=== PATIENT | male | born 1950 | race Caucasian/White ===

== ENCOUNTER 2020-01-11 08:37 | Outpatient (REF) | payer MEDICARE, OTHER, SELFPAY ==
[2020-01-11 10:11] LABS: MANUAL DIFF FLAG NO
[2020-01-11 10:16] LABS: Basophils Percent Auto 0.7 % (0-2); Eosinophils Absolute Auto 0.1 X10*3/uL (0.0-0.4); Eosinophils Percent Auto 1.8 % (0-4); Hematocrit 42.9 % (42-52); Hemoglobin 14.3 g/dl (14.0-18.0); Imm Gran Abs Auto 0.01 X10*3/uL (0.00-0.03); Imm Gran Pct Auto 0.2 % (0.0-0.4); Lymphocytes Absolute Auto 1.2 X10*3/uL (1.2-4.9); Lymphocytes Percent Auto 20.3 % (20-40); Mean Corpuscular HGB Conc 33.3 g/dl (31.0-36.0); Mean Corpuscular Volume 92.9 fL (80-98); Monocytes Absolute Auto 0.4 X10*3/uL (0.1-1.2); Monocytes Percent Auto 6.9 % (2-11); Neutrophils Absolute Auto 4.3 X10*3/uL (2.0-8.3); Neutrophils Percent Auto 70.1 % (45-73); Platelet Count 192 X10*3/uL (160-400); Red Blood Count 4.62 X10*6/uL (4.60-5.80); Red Cell Distribution Width 11.9 % (11.0-16.0); White Blood Count 6.1 X10*3/uL (4.8-10.8)
[2020-01-11 10:50] LABS: Alanine Aminotransferase 20 U/L (0-40); Albumin Level 4.4 g/dL (3.5-5.0); Alkaline Phosphatase 65 U/L (39-117); Anion Gap 12 (12-20); Aspartate Amino Transferase 20 U/L (5-37); Bilirubin Total 0.9 mg/dL (0.0-1.0); Blood Urea Nitrogen 23 mg/dL (9-16); Carbon Dioxide 29 mmol/L (22-29); Chloride 103 mmol/L (96-108); Cholesterol 148 mg/dL; Estimated Glomerular Filt Rate > 60; Glucose Fasting 104 mg/dL (60-99); HDL Cholesterol 47 mg/dL; LDL Cholesterol Calculated 89 mg/dl; Potassium 4.2 mmol/l (3.3-5.1); Sodium 140 mmol/L (135-145); Total Protein 7.1 g/dL (6.5-8.0); Triglycerides 60 mg/dL
[2020-01-11 11:03] LABS: Thyroid Stimulating Hormone 1.04 mIU/mL (0.32-4.0)
== END 2020-01-11 08:38 | disposition home or self-care (01) ==
LOC: HO.10HDL 08:37
PROVIDERS: Visit Provider Internal Medicine
DX: E78.5 Hyperlipidemia, unspecified (principal)
CPT/HCPCS: 36415; 80053; 80061; 84443; 85025

== ENCOUNTER 2020-09-24 14:40 | Outpatient (REF) | payer MEDICARE, OTHER, SELFPAY ==
[2020-09-24 15:01] LABS: MANUAL DIFF FLAG NO
[2020-09-24 15:03] LABS: Basophils Percent Auto 0.3 % (0-2); Eosinophils Percent Auto 0.3 % (0-4); Hematocrit 42.6 % (42-52); Hemoglobin 14.4 g/dl (14.0-18.0); Imm Gran Abs Auto 0.05 X10*3/uL (0.00-0.03); Imm Gran Pct Auto 0.5 % (0.0-0.4); Lymphocytes Absolute Auto 0.8 X10*3/uL (1.2-4.9); Lymphocytes Percent Auto 8.5 % (20-40); Mean Corpuscular HGB Conc 33.8 g/dl (31.0-36.0); Mean Corpuscular Hemoglobin 30.6 pg (27.0-33.0); Mean Corpuscular Volume 90.4 fL (80-98); Mean Platelet Volume 9.5 fL (9.4-12.4); Monocytes Absolute Auto 0.7 X10*3/uL (0.1-1.2); Monocytes Percent Auto 7.3 % (2-11); Neutrophils Absolute Auto 7.9 X10*3/uL (2.0-8.3); Neutrophils Percent Auto 83.1 % (45-73); Platelet Count 282 X10*3/uL (160-400); Red Blood Count 4.71 X10*6/uL (4.60-5.80); White Blood Count 9.5 X10*3/uL (4.8-10.8)
[2020-09-24 15:23] LABS: Anion Gap 15 (12-20); Blood Urea Nitrogen 18 mg/dL (9-16); Calcium 9.8 mg/dL (8.4-10.2); Carbon Dioxide 27 mmol/L (22-29); Chloride 98 mmol/L (96-108); Estimated Glomerular Filt Rate > 60; Glucose Random 104 mg/dL (60-115); Potassium 4.6 mmol/L (3.3-5.1); Sodium 135 mmol/L (135-145)
[2020-09-26 08:10] LABS: Lyme Abs Screen POSITIVE
[2020-10-02 12:37] LABS: 18 KD (IgG) Band NON-REACTIVE; 23 KD (IgG) Band NON-REACTIVE; 23 KD (IgM) Band REACTIVE; 28 KD (IgG) Band NON-REACTIVE; 30 KD (IgG) Band NON-REACTIVE; 39 KD (IgM) Band REACTIVE; 41 KD (IgM) Band REACTIVE; 45 KD (IgG) Band NON-REACTIVE; 58 KD (IgG) Band NON-REACTIVE; 66 KD (IgG) Band NON-REACTIVE; 93 KD (IgG) Band NON-REACTIVE; Lyme IgG Blot Interp NEGATIVE (NEGATIVE); Lyme IgM Blot Interp POSITIVE (NEGATIVE)
== END 2020-09-24 14:41 | disposition home or self-care (01) ==
LOC: HO.LAB 14:40
PROVIDERS: PCP Internal Medicine; Visit Provider Internal Medicine
DX: Z00.00 Encounter for general adult medical examination without abnormal findings (principal); L03.90 Cellulitis, unspecified; R51.9 Headache, unspecified
CPT/HCPCS: 36415; 80048; 85025; 86617; 86618

== ENCOUNTER 2020-12-02 08:02 | Outpatient (REF) | payer MEDICARE, OTHER, SELFPAY ==
[2020-12-02 10:39] LABS: Alanine Aminotransferase 21 U/L (0-40); Albumin Level 4.5 g/dL (3.5-5.0); Alkaline Phosphatase 64 U/L (39-117); Anion Gap 12 (12-20); Aspartate Amino Transferase 24 U/L (5-37); Bilirubin Total 0.8 mg/dL (0.0-1.0); Blood Urea Nitrogen 15 mg/dL (9-16); Calcium 9.7 mg/dL (8.4-10.2); Carbon Dioxide 29 mmol/L (22-29); Chloride 102 mmol/L (96-108); Estimated Glomerular Filt Rate > 60; Glucose Fasting 106 mg/dL (60-99); Potassium 4.5 mmol/L (3.3-5.1); Sodium 138 mmol/L (135-145); Total Protein 7.5 g/dL (6.5-8.0)
[2020-12-02 11:03] LABS: Prostate Specific Antigen 0.99 ng/mL (<0.05-4.0)
== END 2020-12-02 08:03 | disposition home or self-care (01) ==
LOC: HO.10HDL 08:02
PROVIDERS: Visit Provider Nurse Practitioner Family
DX: Z12.5 Encounter for screening for malignant neoplasm of prostate (principal); Z13.1 Encounter for screening for diabetes mellitus
CPT/HCPCS: 36415; 80053; 84153

== ENCOUNTER 2021-03-23 08:25 | Outpatient (REF) | payer MEDICARE, SELFPAY ==
[2021-03-23 10:49] LABS: Cholesterol 185 mg/dL; HDL Cholesterol 49 mg/dL; LDL Cholesterol Calculated 118 mg/dl; Triglycerides 93 mg/dL
== END 2021-03-23 08:26 | disposition home or self-care (01) ==
LOC: HO.10HDL 08:25
PROVIDERS: Visit Provider Internal Medicine
DX: E11.9 Type 2 diabetes mellitus without complications (principal)
CPT/HCPCS: 36415; 80061

== ENCOUNTER 2021-07-20 08:06 | Outpatient (REF) | payer MEDICARE, SELFPAY ==
[2021-07-20 10:45] LABS: Cholesterol 173 mg/dL; HDL Cholesterol 50 mg/dL; LDL Cholesterol Calculated 105 mg/dl; Triglycerides 92 mg/dL
== END 2021-07-20 08:07 | disposition home or self-care (01) ==
LOC: HO.10HDL 08:06
PROVIDERS: Visit Provider Internal Medicine
DX: Z00.00 Encounter for general adult medical examination without abnormal findings (principal)
CPT/HCPCS: 36415; 80061

== ENCOUNTER 2022-01-22 08:15 | Day surgery (SDC) | payer MEDICARE, SELFPAY ==
--- NOTE | 2022-01-21 10:59 | HO.ANESPROP2 ---
Documented by User: Nanette Le NP 01/21/22 11:00 HPI - Anesthesia Eval Consult details Narrative: 71yo M for Colonoscopy PMFSH Active Problems Active Problems: All Active Problems (Updated 01/15/21 @ 15:09 by Renan Kingsley MD) Groin pain (Acute) Lyme disease (Acute) Cellulitis (Acute) Adult general medical exam (Acute) Screening for prostate cancer (Acute) Screening for colon cancer (Acute) Screening for diabetes mellitus (Acute) Acid reflux (Acute) Hyperlipidemia (Acute) Depression (Acute) Past Medical History Medical History Asbestosis Depression Hyperlipidemia Lyme disease Screening for colon cancer Screening for diabetes mellitus Screening for prostate cancer Family History Family History Father Dementia Mother Aneurysm Surgical History Surgical History H/O rectal polypectomy History of colonoscopy History of inguinal hernia repair History of umbilical hernia repair History of vasectomy Social History Social History Housing: House Alcohol intake: current Alcohol intake frequency: a few times a month Patient Tobacco Use Status: Former Tobacco user Tobacco use type: Cigarette e-Cigarette/Vaping Use: Never Used Second Hand Smoke Exposure: No Advance Directives: No Advance Directives Information Provided: Yes service: No Current occupational status: retired Cognitive needs: No Hearing needs: No Vision needs: No Meds Allergies Allergy/AdvReac Type Severity Reaction Status Date / Time No Known Allergies Allergy Verified 09/23/21 15:06 Home Medications Medication Instructions Recorded Confirmed Last Taken Type omeprazole 20 mg capsule,delayed 20 mg PO DAILY 01/21/20 09/23/21 Unknown History release Exam Exam Date and Time: January 21, [id number] Assessment and Plan Assessment Anesthesia Assessment: Chart Reviewed Documented by User: Fabian Ho MD 01/22/22 08:54 [facility] Past Medical History Medical History Asbestosis Depression Hyperlipidemia Lyme disease Screening for colon cancer Screening for diabetes mellitus Screening for prostate cancer Family History Family History Father Dementia Mother Aneurysm Family history of problems with anesthesia: No Surgical History Surgical History H/O rectal polypectomy History of colonoscopy History of inguinal hernia repair History of umbilical hernia repair History of vasectomy History of Problems with Anesthesia: No Social History Social History Housing: House Alcohol intake: current Alcohol intake frequency: a few times a month Patient Tobacco Use Status: Former Tobacco user Tobacco use type: Cigarette e-Cigarette/Vaping Use: Never Used Second Hand Smoke Exposure: No Advance Directives: No Advance Directives Information Provided: Yes service: No Current occupational status: retired Cognitive needs: No Hearing needs: No Vision needs: No Meds Allergies Allergy/AdvReac Type Severity Reaction Status Date / Time No Known Allergies Allergy Verified 09/23/21 15:06 Home Medications Medication Instructions Recorded Confirmed Last Taken Type omeprazole 20 mg capsule,delayed 20 mg PO DAILY 01/21/20 09/23/21 Unknown History release Exam Airway Mallampati Class: II TM Dist: >3cm Neck ROM: Full Loose/Missing/Broken Teeth: Yes (no loose but many chipped globally) Heart: rrr+[id number] Lungs: cta b/l Assessment and Plan Assessment Anesthesia Assessment: Anesthesia Plan Discussed Final Anesthetic Review Family History of Problems with Anesthesia: No History of Problems with Anesthesia: No NPO: Yes ASA Class: II Final Preanesthetic Review: No Changes in Pt Med Stat, Meds/Allgs Chart Reviewed, Consent Obtained/Reviewed and Anes Risks/Benef Reviewed Patient Risk: Intermediate Procedure Risk: Intermediate Assessment/Block/Sedation in SS: Assess/Block/Sedation-SS Anesthetic Plan Anesthetic Plan: MAC: and Agree w/ Assess. and Plan Disposition: Standard PACU
[2022-01-22 08:33] VITALS: BMI 26.6
[2022-01-22 08:49] VITALS: BP 160/84; PULSE 93; RESP 16; TEMP 36.8; O2SAT 98
[2022-01-22] MEDS: Lactated Ringers 1,000 ML 100 ML IVCONT (09:04)
--- NOTE | 2022-01-22 10:27 | PM.OP ---
Brief Operative Note Date of Service: 01/22/22 Pre-op diagnosis: Screening Post-op diagnosis: other (Diverticulosis) Procedure: Colonoscopy to the cecum and TI Surgeon: Isai Bonilla Anesthesia: MAC Was an Ferryboat Operator Helper used for this Procedure?: No Estimated blood loss (mL): 0 Pathology: none sent Condition: stable Disposition: PACU
[2022-01-22 10:28] VITALS: BP 126/62; PULSE 58; RESP 16; TEMP 36.4; O2SAT 98
[2022-01-22 10:42] VITALS: BP 113/60; PULSE 60; RESP 18; O2SAT 98
[2022-01-22 10:56] VITALS: BP 131/71; PULSE 66; RESP 18; TEMP 36.7; O2SAT 98
--- NOTE | 2022-01-22 13:01 | OP_ITS ---
SURGEON: Isai Bonilla MD INDICATIONS: The patient presents for evaluation of colorectal cancer screening and personal history of tubular adenoma of the colon. Full consent has been obtained from him for this, including risks of bleeding and perforation. PREOPERATIVE DIAGNOSIS: Colorectal cancer screening and personal history of tubular adenoma of the colon. POSTOPERATIVE DIAGNOSIS: PROCEDURE PERFORMED: Colonoscopy to the cecum and terminal ileum. ESTIMATED BLOOD LOSS: COMPLICATIONS: ANESTHESIA: Monitored anesthesia care. ASSISTANTS: SPECIMENS: POSTOPERATIVE DIAGNOSES: Colorectal cancer screening and personal history of tubular adenoma of the colon, diverticulosis, internal hemorrhoids. DESCRIPTION OF PROCEDURE: The patient was placed in the left lateral decubitus position. The digital rectal exam revealed no abnormalities. The Olympus video pediatric colonoscope was entered into the rectum and advanced easily to the cecum. Once in the cecum, I did identify a normal-appearing cecal pouch with appendiceal orifice and a normal-appearing ileocecal valve. The terminal ileum was cannulated and appeared normal. The scope was withdrawn back in the colon. The entire cecum and ileocecal valve appeared normal. The scope was slowly withdrawn assessing all mucosal surfaces carefully. Preparation was excellent. I did not visualize any sign of polyps, colitis, nor angiodysplasia. There was a moderate amount of sigmoid diverticulosis. In the rectum, scope was retroflexed visualizing internal hemorrhoids, but no other pathology. The rectal mucosa appeared normal. The scope was straightened and withdrawn from the patient. He tolerated the procedure well and was returned to the recovery area in stable condition. IMPRESSION: 1. Diverticulosis. 2. Internal hemorrhoids. PLAN: Given his previous history, I would recommend a followup colonoscopy in 5 years for further screening. He will otherwise see me on a p.r.n. basis. MD MENDEZ Bishop/JAIDA / [id number]
== END 2022-01-22 11:26 | disposition home or self-care (01) ==
PROVIDERS: PCP Internal Medicine; Visit Provider Internal Medicine
PROC: 0DJD8ZZ Inspection of Lower Intestinal Tract, Via Natural or Artificial Opening Endoscopic (ICD-10-PCS; CPT 45378; principal; 2022-01-22 09:30)
DX: Z12.11 Encounter for screening for malignant neoplasm of colon (principal); Z86.010 Personal history of colon polyps; K57.30 Diverticulosis of large intestine without perforation or abscess without bleeding; K64.8 Other hemorrhoids; K22.2 Esophageal obstruction; E78.5 Hyperlipidemia, unspecified; J61 Pneumoconiosis due to asbestos and other mineral fibers; A69.20 Lyme disease, unspecified; Z79.899 Other long term (current) drug therapy; Z87.891 Personal history of nicotine dependence
CPT/HCPCS: G0105; J2370

== ENCOUNTER 2022-01-26 08:04 | Outpatient (REF) | payer MEDICARE, SELFPAY ==
[2022-01-26 10:37] LABS: MANUAL DIFF FLAG NO
[2022-01-26 10:45] LABS: Basophils Percent Auto 0.8 % (0-2); Eosinophils Absolute Auto 0.1 X10*3/uL (0.0-0.4); Eosinophils Percent Auto 2.8 % (0-4); Hematocrit 43.7 % (42.0-52.0); Hemoglobin 14.7 g/dl (14.0-18.0); Imm Gran Abs Auto 0.01 X10*3/uL (0.00-0.03); Imm Gran Pct Auto 0.2 % (0.0-0.4); Lymphocytes Absolute Auto 1.4 X10*3/uL (1.2-4.9); Lymphocytes Percent Auto 26.8 % (20-40); Mean Corpuscular HGB Conc 33.6 g/dl (31.0-36.0); Mean Corpuscular Hemoglobin 30.5 pg (27.0-33.0); Mean Corpuscular Volume 90.7 fL (80.0-98.0); Mean Platelet Volume 10.5 fL (9.4-12.4); Monocytes Absolute Auto 0.4 X10*3/uL (0.1-1.2); Monocytes Percent Auto 8.5 % (2-11); Neutrophils Absolute Auto 3.1 x10*3/uL (2.0-8.3); Neutrophils Percent Auto 60.9 % (45-73); Platelet Count 176 X10*3/uL (160-400); Red Blood Count 4.82 X10*6/uL (4.60-5.80); White Blood Count 5.1 X10*3/uL (4.8-10.8)
[2022-01-26 11:17] LABS: Alanine Aminotransferase 24 U/L (0-40); Albumin Level 4.6 g/dL (3.5-5.0); Alkaline Phosphatase 68 U/L (39-117); Anion Gap 14 (12-20); Aspartate Amino Transferase 24 U/L (5-37); Bilirubin Total 0.7 mg/dL (0.0-1.0); Blood Urea Nitrogen 26 mg/dL (9-16); Calcium 9.6 mg/dL (8.4-10.2); Carbon Dioxide 28 mmol/L (22-29); Chloride 101 mmol/L (96-108); Cholesterol 182 mg/dL; Estimated Glomerular Filt Rate > 60; Glucose Fasting 106 mg/dL (60-99); HDL Cholesterol 56 mg/dL; LDL Cholesterol Calculated 103 mg/dl; Potassium 4.3 mmol/L (3.3-5.1); Sodium 139 mmol/L (135-145); Total Protein 7.7 g/dL (6.5-8.0); Triglycerides 119 mg/dL
[2022-01-26 11:38] LABS: Prostate Specific Antigen Scr 0.76 ng/mL (<0.05-4.0)
== END 2022-01-26 08:05 | disposition home or self-care (01) ==
LOC: HO.10HDL 08:04
PROVIDERS: Visit Provider Internal Medicine
DX: Z00.00 Encounter for general adult medical examination without abnormal findings (principal); Z13.0 Encounter for screening for diseases of the blood and blood-forming organs and certain disorders involving the immune mechanism; Z12.5 Encounter for screening for malignant neoplasm of prostate
CPT/HCPCS: 36415; 80053; 80061; 84153; 85025

== ENCOUNTER 2022-07-26 08:16 | Outpatient (REF) | payer MEDICARE, SELFPAY ==
[2022-07-26 11:00] LABS: Cholesterol 174 mg/dL; HDL Cholesterol 53 mg/dL; LDL Cholesterol Calculated 105 mg/dl; Triglycerides 83 mg/dL
== END 2022-07-26 08:17 | disposition home or self-care (01) ==
LOC: HO.10HDL 08:16
PROVIDERS: Visit Provider Internal Medicine
DX: E78.5 Hyperlipidemia, unspecified (principal)
CPT/HCPCS: 36415; 80061

== ENCOUNTER 2022-08-05 09:08 | Outpatient (REF) | payer MEDICARE, SELFPAY ==
[2022-08-05 11:30] LABS: Erythrocyte Sedimentation Rate 7 MM/HR (0-15)
[2022-08-05 11:44] LABS: Folate 11.3 ng/mL (> or = 4.0); Vitamin B12 274 pg/mL (200-900)
== END 2022-08-05 09:09 | disposition home or self-care (01) ==
LOC: HO.10HDL 09:08
PROVIDERS: Visit Provider Internal Medicine
DX: R41.89 Other symptoms and signs involving cognitive functions and awareness (principal)
CPT/HCPCS: 36415; 82607; 82746; 85652

== ENCOUNTER 2022-08-26 10:23 | Outpatient (REF) | payer MEDICARE, SELFPAY ==
--- NOTE | ~2022-08-26 | CT_ITS ---
EXAMINATION: CT HEAD WITHOUT CONTRAST CLINICAL INFORMATION: Cognitive decline. COMPARISON: None. TECHNIQUE: Contiguous axial imaging was performed from the skullbase to vertex without intravenous administration of contrast. This CT examination was performed using dose optimization techniques as appropriate, variously including the following: *Automated exposure control *Adjustment of mA and/or kV according to patient size (this includes techniques or standardized protocols for targeted exams where dose is matched to indication/reason for exam; i.e. extremities or head) *Use of iterative reconstruction technique DLP: 797 mGy-cm. FINDINGS: There is no evidence of acute intracranial hemorrhage or territorial infarction. No abnormal mass effect or midline shift is seen. [place] to white matter differentiation is well preserved. No extra-axial fluid collections are identified. Incidental 9 mm pineal cyst noted. No findings of hydrocephalus. There is no abnormal attenuation within the brain. Mild generalized parenchymal volume loss evident. The osseous structures and soft tissues are normal. The mastoid air cells and visualized portions of the paranasal sinuses are well aerated. Soft tissue in the deep portion of the left external auditory canal may reflect cerumen. CT/CT head/brain wo IV con IMPRESSION: No acute intracranial pathology.
== END 2022-08-26 10:24 | disposition home or self-care (01) ==
LOC: HO.CT 10:23
PROVIDERS: Visit Provider Internal Medicine
DX: R41.89 Other symptoms and signs involving cognitive functions and awareness (principal)
CPT/HCPCS: 70450

== ENCOUNTER 2022-09-17 06:20 | Outpatient (REF) | payer MEDICARE, SELFPAY ==
[2022-09-21 14:43] LABS: Vitamin B1 12 nmol/L (8-30)
== END 2022-09-17 06:21 | disposition home or self-care (01) ==
LOC: HO.LAB 06:20
PROVIDERS: PCP Internal Medicine; Visit Provider Psychiatry & Neurology Neurology
DX: G31.84 Mild cognitive impairment of uncertain or unknown etiology (principal)
CPT/HCPCS: 36415; 80048; 82607; 82746; 84425; 84443

== ENCOUNTER 2022-09-29 10:49 | Outpatient (AMB) | payer MEDICARE, SELFPAY ==
[2022-09-29 10:56] VITALS: BP 150/90; BMI 27.4
--- NOTE | 2022-09-29 10:56 | A.OFFVIS_ITS ---
Intake Vital Signs 09/29/22 10:56 09/29/22 11:18 Height 5 ft 7 in Weight 175 lb BMI 27.4 BP 150/90 H 144/80 H Blood Pressure Location Lt brachial Lt brachial Position Sitting Sitting Intake Visit Reasons: [facility] Intake Note: Patient here fo a subsequent annual wellness visit Dairy Helper Required: No Accompanied by: Self / Same As Patient Allergies No Known Allergies Allergy (Verified 09/29/22 11:11) Medication List - Last Reconciled 09/29/22 by CLARICE Renee atorvastatin 20 mg PO DAILY donepezil 10 mg PO DAILY lorazepam 1 mg PO BID-TID PRN 30 days omeprazole 20 mg PO DAILY HPI SAWV HPI Details Patient is a 72-year-old male who presents today for subsequent [facility] ess visit. Patient of Dr. Kingsley. Patient is up-to-date with his health preventative screenings and immunizations. [place] of care was reviewed with the patient and he was provided with a screening schedule. Patient was provided with a healthcare proxy form and he has declined a MOLST form. [facility] Medical History Asbestosis Depression Hyperlipidemia Lyme disease Screening for colon cancer Screening for diabetes mellitus Screening for prostate cancer Surgical History (Updated 09/29/22 @ 11:27 by CLARICE Renee) H/O rectal polypectomy History of colonoscopy History of inguinal hernia repair History of umbilical hernia repair History of vasectomy Family History Father Dementia Mother Aneurysm Social History Housing: House Alcohol intake: current Alcohol intake frequency: 0-2 drinks per day Patient Tobacco Use Status: Former Tobacco user Tobacco use type: Cigarette Cigarette Packs Per Day: 1 Cigarettes Per Day: 20.0 Years Smoked: 25 e-Cigarette/Vaping Use: Never Used Second Hand Smoke Exposure: No service: No Current occupational status: retired Cognitive needs: No Hearing needs: No Vision needs: No Questionnaire Medicare Wellness Checkup [age] What gender do you identify with?: male During the past 4 weeks, how much have you been bothered by emotional problems such as feeling anxious, depressed, irritable, sad or downhearted, and blue?: moderately During the past 4 weeks, has your physical & emotional health limited your social activities with family, friends, neighbors, or groups?: moderately During the past 4 weeks, how much bodily pain have you generally had?: no pain During the past 4 weeks, was someone available to help you if you needed & wanted help?: yes, quite a bit During the past 4 weeks, what was the hardest physical activity you could do for at least 2 minutes?: moderate Can you get to places out of walking distance without help? (For eg., can you travel alone on buses, taxis or drive your car?): Yes Can you go shopping for groceries or clothes without someone's help?: Yes Can you prepare your own meals?: Yes Can you do your housework without help?: Yes Because of any health problems, do you need the help of another person with your personal care needs such as eating, bathing, dressing or getting around the house?: No Can you handle your own money without help?: Yes During the past 4 weeks, how would you rate your health in general?: good During the past 4 weeks how have things been going for you?: good & bad parts about equal Are you having difficulties driving your car?: no Do you always fasten your seat belt when you are in a car?: yes, usually During past 4 weeks, have you been bothered by the following: never: Falling or dizzy when standing up, Sexual problems?, Trouble eating well?, Teeth or denture problems?, Problems using the telephone? and Tiredness or fatigue? Have you fallen 2 or more times in the past year?: No Are you afraid of falling?: No Are you a smoker?: no During the past 4 weeks, how many drinks of wine, beer, or other alcoholic beverages did you have?: 10 or more per week Do you exercise for about 20 minutes 3 or more times a week?: yes, most of the time Have you been given information to help with the following?: no: Hazards in your house that might hurt you? and no: Keeping track of your medications? How often do you have trouble taking medicines the way you have been told to take them?: I always take medicine as prescribed How confident are you that you can control & manage most of your health problems?: somewhat confident What is your race?: White Mini Mental State Exam (MMSE) Orientation What is the (year) (season) (date) (day) (month)?: year, season, date, day and month Score Score: 5 Activity of Daily Living Bathing - sponge bath, tub bath or shower: receives no assistance (gets in/out by self, if usual bathing means Dressing - getting clothes from closets & drawers, including inner/outer garments & fasteners.: gets clothes & gets completely dressed without help Toileting - going to the 'toilet room' for urine/bowel elimination & cleaning self/arranging clothes: goes to toilet room, cleans self, arranges clothes without help Transfer: moves in & out of bed and chair without help (may use support object) Continence: controls urination/bowel movements completely by self Feeding: feeds self without help Total Score: 0 Information obtained from: patient Using telephone: independent Traveling: independent Shopping: independent Preparing meals: independent Housework: independent Taking medicine: independent Managing money: independent PHQ-9 Over the last 2 weeks, how often have you been bothered by any of the following problems? 1. Little interest or pleasure in doing things: not at all 2. Feeling down, depressed, or hopeless: several days 3. Trouble falling or staying asleep, or sleeping too much: not at all 4. Feeling tired or having little energy: not at all 5. Poor appetite or overeating: not at all 6. Feeling bad about yourself - or that you are a failure or have let yourself or your family down: not at all 7. Trouble concentrating on things, such as reading the newspaper or watching television: not at all 8. Moving or speaking so slowly that other people could have noticed. Or the opposite - being so fidgety or restless that you have been moving around a lot more than usual: not at all 9. Thoughts that you would be better off or of hurting yourself in some way: not at all Total score: 1 Depression Screening Interpretation: Negative 59953 - PHQ-9 Billing: Yes Source: Developed by Drs. Isai Barros, Kristin Blanton, Saulo Shultz and colleagues, with an educational mine from [employer]. AUDIT C Alcohol Use Questionnaire (AUDIT-C) 1. How often do you have a drink containing alcohol?: 4 or more times a week 2. How many drinks containing alcohol do you have on a typical day when you are drinking?: 1 or 2 3. How often do you have six or more drinks on one occasion?: Never Total Score: 4 Score Reviewed/Action Taken: No Fall Risk Assessment Fall Risk Assessment Fall risk assessment: No Falls in past year SOL-7 AMB Questionnaire SOL-7 Date SOL - 7 assessed: 09/29/22 Feeling nervous, anxious, or on edge: 0 = Not at all Not being able to stop or control worryin = Not at all Worrying too much about different things: 0 = Not at all Trouble relaxin = Not at all Being so restless that it is hard to sit still: 0 = Not at all Becoming easily annoyed or irritable: 0 = Not at all Feeling afraid as if something awful might happen: 0 = Not at all Total SOL-7 score (0-4 normal; 5-9 mild; 10-14 moderate; 15-21 severe): 0 Source: Developed by Drs. Isai Barros, Kristin Blanton, Saulo Shultz and colleagues, with an educational mine from [email or web address]. SOL-7 Assessment Billing SOL-7 Assessment Tool: SOL-7 Assessment 21167 Physical Exam Vital Signs: Last Vital Signs BP 150/90 H 09/29/22 10:56 BMI result Body Mass Index 27.4 Const General: cooperative and no acute distress Orientation/consciousness: patient oriented x3 HEENT Other: Whisper test: pass Neuro Other: Balance: Normal Get up and walk: able to Romberg: negative Tandem gait: able to General: patient oriented x3 Assessment & Plan Assessment & Plan (1) Adult general medical exam: Code(s): Z00.00 - Encounter for general adult medical examination without abnormal findings (2) Acid reflux: Code(s): K21.9 - Gastro-esophageal reflux disease without esophagitis Plan: Omeprazole 20 mg daily Avoid GERD trigger foods Do not lay down 2-3 hours after evening meal (3) Hyperlipidemia: Code(s): E78.5 - Hyperlipidemia, unspecified Qualifiers: Hyperlipidemia type: unspecified Qualified Code(s): E78.5 - Hyperlipidemia, unspecified Plan: Atorvastatin 20 mg daily Low-cholesterol diet (4) Cognitive decline: Code(s): R41.89 - Other symptoms and signs involving cognitive functions and awareness Plan: Patient is on donepezil which is prescribed by Neurology Dr. Evans Quality Reporting (2019) Fall Risk Screening ([facility] 139) Fall risk assessment: No Falls in past year Depression/Bipolar (159/160/161/177) PHQ-9: Total score: 1 Coding Level of Care Code Medicare Subsequent (G0439) Diagnoses Adult general medical exam Z00.00 Acid reflux K21.9 Hyperlipidemia E78.5 Hyperlipidemia type: unspecified Cognitive decline R41.89 CPT Codes Advance Care Planning - Time spent: 1-15 minutes, not on file ([id number]) Additional Codes SOL-7 Assessment Billing - SOL-7 Assessment Tool: SOL-7 Assessment 54670 ([id number]) Advance Care Planning Date of discussion: 09/29/22 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
[2022-09-29 11:18] VITALS: BP 144/80
== END 2022-09-29 11:21 | disposition home or self-care (01) ==
PROVIDERS: PCP Internal Medicine; Visit Provider Nurse Practitioner Family
DX: Z00.00 Encounter for general adult medical examination without abnormal findings (principal); K21.9 Gastro-esophageal reflux disease without esophagitis; E78.5 Hyperlipidemia, unspecified; R41.89 Other symptoms and signs involving cognitive functions and awareness
CPT/HCPCS: 1124F; G0439

== ENCOUNTER 2023-01-26 07:35 | Outpatient (REF) | payer MEDICARE, SELFPAY ==
[2023-01-26 10:29] LABS: MANUAL DIFF FLAG NO
[2023-01-26 10:38] LABS: Basophils Percent Auto 0.5 % (0-2); Eosinophils Absolute Auto 0.1 X10*3/uL (0.0-0.4); Eosinophils Percent Auto 2.3 % (0-4); Hematocrit 44.7 % (42.0-52.0); Imm Gran Abs Auto 0.02 X10*3/uL (0.00-0.03); Imm Gran Pct Auto 0.4 % (0.0-0.4); Lymphocytes Absolute Auto 1.4 X10*3/uL (1.2-4.9); Lymphocytes Percent Auto 25.4 % (20-40); Mean Corpuscular HGB Conc 33.6 g/dl (31.0-36.0); Mean Corpuscular Hemoglobin 31.3 pg (27.0-33.0); Mean Corpuscular Volume 93.1 fL (80.0-98.0); Mean Platelet Volume 11.4 fL (9.4-12.4); Monocytes Absolute Auto 0.5 X10*3/uL (0.1-1.2); Neutrophils Absolute Auto 3.6 x10*3/uL (2.0-8.3); Neutrophils Percent Auto 63.4 % (45-73); Platelet Count 179 X10*3/uL (160-400); Red Cell Distribution Width 12.4 % (11.0-16.0); White Blood Count 5.6 X10*3/uL (4.8-10.8)
[2023-01-26 10:50] LABS: Alanine Aminotransferase 23 U/L (0-40); Albumin Level 4.5 g/dL (3.5-5.0); Alkaline Phosphatase 69 U/L (39-117); Anion Gap 12 (12-20); Aspartate Amino Transferase 27 U/L (5-37); Bilirubin Total 0.7 mg/dL (0.0-1.0); Blood Urea Nitrogen 17 mg/dL (9-16); Calcium 9.6 mg/dL (8.4-10.2); Carbon Dioxide 30 mmol/L (22-29); Chloride 104 mmol/L (96-108); Cholesterol 165 mg/dL (<200); Estimated Glomerular Filt Rate > 60; Glucose Fasting 106 mg/dL (60-99); HDL Cholesterol 55 mg/dL (>40); LDL Cholesterol Calculated 96 mg/dL (<100); Potassium 3.7 mmol/L (3.3-5.1); Sodium 142 mmol/L (135-145); Total Protein 7.7 g/dL (6.5-8.0); Triglycerides 74 mg/dL (<150)
== END 2023-01-26 07:36 | disposition home or self-care (01) ==
LOC: HO.10HDL 07:35
PROVIDERS: Visit Provider Internal Medicine
DX: Z00.00 Encounter for general adult medical examination without abnormal findings (principal); E78.5 Hyperlipidemia, unspecified; N28.9 Disorder of kidney and ureter, unspecified; D64.9 Anemia, unspecified; Z12.5 Encounter for screening for malignant neoplasm of prostate
CPT/HCPCS: 36415; 80053; 80061; 84153; 85025

== ENCOUNTER 2023-02-07 13:17 | Outpatient (AMB) | payer MEDICARE, SELFPAY ==
[2023-02-07 13:19] VITALS: BP 124/72; PULSE 94; O2SAT 98
--- NOTE | 2023-02-07 13:19 | MHC.PC.OV ---
Vital Signs 02/07/23 13:19 Height 5 ft 7 in BP 124/72 Blood Pressure Location Lt brachial Position Sitting Pulse 94 Pulse Source Pulse Oximeter Pulse Oximetry (%) 98 Oxygen Delivery Method Room Air Intake Visit Reasons: 6mth f/u Instructional Technology Facilitator Required: No Custom Stock Maker: Not Required per policy Accompanied by: Self / Same As Patient Allergies No Known Allergies Allergy (Verified 02/07/23 13:20) Medication List - Last Reconciled 02/07/23 by Renan Kingsley MD atorvastatin 20 mg PO DAILY donepezil 10 mg PO DAILY omeprazole 20 mg PO DAILY Tobacco use date assessed: 08/04/22 Fall risk assessment: No Falls in past year Last assessed Fall Risk: 02/07/23 Dental Screening Dental Screen Date: 02/07/23 Did you have a dental visit in the last 12 months?: Yes Did you have a dental problem in the last 6 months where you did not have access to dental care?: No Was dental information given to patient?: Patient has dentist HPI 6mth f/u HPI Details hyperlipidemia on rx; doing well and lbs fine PFSH Medical History Asbestosis Lyme disease Screening for prostate cancer Screening for colon cancer Screening for diabetes mellitus Hyperlipidemia Depression Surgical History History of colonoscopy History of umbilical hernia repair History of inguinal hernia repair H/O rectal polypectomy History of vasectomy Family History Father Dementia Mother Aneurysm Housing: House Alcohol intake: current Alcohol intake frequency: 0-2 drinks per day Patient Tobacco Use Status: Former Tobacco user Tobacco use type: Cigarette Cigarette Packs Per Day: 1 Cigarettes Per Day: 20.0 Years Smoked: 25 Packs Per Year: 25 Packs per year/per ci.00 e-Cigarette/Vaping Use: Never Used Second Hand Smoke Exposure: No service: No Current occupational status: retired Cognitive needs: No Hearing needs: No Vision needs: No Questionnaire Thrive Questionnaire Date Thrive assessed: 08/04/22 SOL-7 AMB Questionnaire SOL-7 Date SOL - 7 assessed: 09/29/22 Source: Developed by Drs. Isai Barros, Kristin Blanton, Saulo Shultz and colleagues, with an educational mine from [email or web address]. Review of Systems Const Denies chills, Denies headache(s) and Denies weight loss ENT Denies headache(s) Card Denies chest pain, Denies syncope, Denies irregular heart rhythm and Denies dyspnea Resp Denies chest congestion, Denies cough and Denies dyspnea GI Denies abdominal pain, Denies change in stool character, Denies nausea and Denies vomiting Musc Denies deformity and Denies joint swelling Neuro Denies syncope and Denies headache(s) Physical exam (Primary Care) Vital Signs: Last Vital Signs Pulse 94 02/07/23 13:19 BP 124/72 02/07/23 13:19 Pulse Ox 98 02/07/23 13:19 Oxygen Delivery Method Room Air 02/07/23 13:19 Tobacco/Smoking Status: Tobacco use Status Tobacco use date assessed 08/04/22 02/07/23 13:20 Patient Tobacco Use Status Former Tobacco user 02/07/23 13:20 Tobacco use type Cigarette 02/07/23 13:20 e-Cigarette/Vaping Use Never Used 02/07/23 13:20 Thrive Assessment: Date of Thrive Assessment Date Thrive assessed 08/04/22 02/07/23 13:20 Const General: cooperative, comfortable, no acute distress and alert Neck Neck: Yes no lymphadenopathy Thyroid: Thyroid normal Resp Effort & Inspection: normal respiratory effort Auscultation: clear to auscultation bilaterally Percussion: percussion normal Cardio Jugular venous distension: no JVD Palpation: normal PMI Rate: regular rate Rhythm: regular rhythm Heart sounds: S1 normal heart sound present and S2 normal heart sound present GI Inspection: Yes normal to inspection Palpation (GI): No hepatosplenomegaly present Skin General skin exam: no rashes or lesions noted Extrem General: Yes no clubbing, cyanosis or edema Assessment and Plan Assessment & Plan (1) Hyperlipidemia: Code(s): E78.5 - Hyperlipidemia, unspecified Qualifiers: Hyperlipidemia type: unspecified Qualified Code(s): E78.5 - Hyperlipidemia, unspecified Plan: stable; same rx Orders: Orders Lipid Panel Today E78.5 - Hyperlipidemia, unspecified Coding Level of Care Code Est Pt Level 3 (84733) Diagnoses Hyperlipidemia, unspecified hyperlipidemia type E78.5 Hyperlipidemia type: unspecified
== END 2023-02-07 13:32 | disposition home or self-care (01) ==
PROVIDERS: Visit Provider Internal Medicine
DX: E78.5 Hyperlipidemia, unspecified (principal)
CPT/HCPCS: 99213

== ENCOUNTER 2023-07-13 07:37 | Outpatient (REF) | payer MEDICARE, SELFPAY ==
[2023-07-13 11:42] LABS: Cholesterol 178 mg/dL (<200); HDL Cholesterol 53 mg/dL (>40); LDL Cholesterol Calculated 109 mg/dL (<100); Triglycerides 84 mg/dL (<150)
== END 2023-07-13 07:38 | disposition home or self-care (01) ==
LOC: HO.10HDL 07:37
PROVIDERS: Visit Provider Internal Medicine
DX: E78.5 Hyperlipidemia, unspecified (principal)
CPT/HCPCS: 36415; 80061

== ENCOUNTER 2023-08-04 10:06 | Outpatient (AMB) | payer MEDICARE, SELFPAY ==
[2023-08-04 10:08] VITALS: BP 142/64; PULSE 80; O2SAT 99; BMI 26.6
--- NOTE | 2023-08-04 10:08 | A.OFFPC_ITS ---
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: Not Required per policy Accompanied by: Self / Same As Patient Allergies No Known Allergies Allergy (Verified 08/04/23 10:08) Medication List - Last Reconciled 08/04/23 by Renan Kingsley MD atorvastatin 20 mg PO DAILY donepezil 10 mg PO DAILY lorazepam 1 mg PO DAILY PRN omeprazole 20 mg PO DAILY Tobacco use date assessed: 08/04/23 Fall risk assessment: No Falls in past year Last assessed Fall Risk: 08/04/23 Dental Screening Dental Screen Date: 08/04/23 Did you have a dental visit in the last 12 months?: Yes Did you have a dental problem in the last 6 months where you did not have access to dental care?: No Was dental information given to patient?: Patient has dentist HPI 6 month f/u HPI Details hyperlip on rx; doing well and compliant [facility] Medical History Asbestosis Lyme disease Screening for prostate cancer Screening for colon cancer Screening for diabetes mellitus Hyperlipidemia Depression Surgical History History of colonoscopy History of umbilical hernia repair History of inguinal hernia repair H/O rectal polypectomy History of vasectomy Family History Father Dementia Mother Aneurysm Social History Housing: House Alcohol intake: current Alcohol intake frequency: 0-2 drinks per day Patient Tobacco Use Status: Former Tobacco user Tobacco use type: Cigarette Cigarette Packs Per Day: 1 Cigarettes Per Day: 20.0 Years Smoked: 25 e-Cigarette/Vaping Use: Never Used Second Hand Smoke Exposure: No service: No Current occupational status: retired Cognitive needs: No Hearing needs: No Vision needs: No Questionnaire PHQ-9 Over the last 2 weeks, how often have you been bothered by any of the following problems? 1. Little interest or pleasure in doing things: not at all 2. Feeling down, depressed, or hopeless: not at all 3. Trouble falling or staying asleep, or sleeping too much: not at all 4. Feeling tired or having little energy: not at all 5. Poor appetite or overeating: not at all 6. Feeling bad about yourself - or that you are a failure or have let yourself or your family down: not at all 7. Trouble concentrating on things, such as reading the newspaper or watching television: not at all 8. Moving or speaking so slowly that other people could have noticed. Or the opposite - being so fidgety or restless that you have been moving around a lot more than usual: not at all 9. Thoughts that you would be better off or of hurting yourself in some way: not at all Total score: 0 Depression Screening Interpretation: Negative Depression Screening Done: Yes 12109 - PHQ-9 Billing: Yes Source: Developed by Drs. Isai Barros, Kristin Blanton, Saulo Shultz and colleagues, with an educational mine from [employer] [place]. Thrive Questionnaire Date Thrive assessed: 08/04/23 I am a: Patient What is your living situation today?: I have a steady place to live Within the past 12 months, did the food you bought not last and you didn't have the money to get more?: Never true Within the past 12 months, did you worry whether your food would run out before you got money to buy more?: Never true Do you have trouble paying for medicines?: No Do you have trouble getting transportation to medical appointments?: No Do you have trouble paying your heating and electricity bill?: No Do you have trouble taking care of your child, family member or friend?: No Do you have trouble with day-to-day activities such as bathing, preparing meals, shopping, managing finances, etc.?: No Are you currently unemployed and looking for a job?: No Are you interested in more education?: No Please select the resources that you would like help with: None THRIVE Score: 0 AUDIT C Alcohol Use Questionnaire (AUDIT-C) 1. How often do you have a drink containing alcohol?: 4 or more times a week 2. How many drinks containing alcohol do you have on a typical day when you are drinking?: 1 or 2 3. How often do you have six or more drinks on one occasion?: Never Total Score: 4 Score Reviewed/Action Taken: No SOL-7 AMB Questionnaire SOL-7 Date SOL - 7 assessed: 08/04/23 Feeling nervous, anxious, or on edge: 0 = Not at all Not being able to stop or control worryin = Not at all Worrying too much about different things: 0 = Not at all Trouble relaxin = Not at all Being so restless that it is hard to sit still: 0 = Not at all Becoming easily annoyed or irritable: 0 = Not at all Feeling afraid as if something awful might happen: 0 = Not at all Total SOL-7 score (0-4 normal; 5-9 mild; 10-14 moderate; 15-21 severe): 0 Source: Developed by Drs. Isai Barros, Kristin Blanton, Saulo Shultz and colleagues, with an educational mine from [employer] [place]. Review of Systems Const Denies chills, Denies headache(s) and Denies weight loss ENT Denies headache(s) Card Denies chest pain, Denies syncope, Denies irregular heart rhythm and Denies dyspnea Resp Denies chest congestion, Denies cough and Denies dyspnea GI Denies abdominal pain, Denies change in stool character, Denies nausea and Denies vomiting Musc Denies deformity and Denies joint swelling Neuro Denies syncope and Denies headache(s) Physical exam (Primary Care) Vital Signs: Last Vital Signs Pulse 80 08/04/23 10:08 BP 142/64 H 08/04/23 10:08 Pulse Ox 99 08/04/23 10:08 Oxygen Delivery Method Room Air 08/04/23 10:08 BMI result Body Mass Index 26.6 Tobacco/Smoking Status: Tobacco use Status Tobacco use date assessed 08/04/23 08/04/23 10:09 Patient Tobacco Use Status Former Tobacco user 08/04/23 10:09 Tobacco use type Cigarette 08/04/23 10:09 e-Cigarette/Vaping Use Never Used 08/04/23 10:09 PHQ-9: PHQ-9 Score PHQ-9: Total score 0 08/04/23 10:15 Depression Screening Interpretation: Negative Thrive Assessment: Date of Thrive Assessment Date Thrive assessed 08/04/23 08/04/23 10:09 Const General: cooperative, comfortable, no acute distress and alert Neck Neck: Yes no lymphadenopathy Thyroid: Thyroid normal Resp Effort & Inspection: normal respiratory effort Auscultation: clear to auscultation bilaterally Percussion: percussion normal Cardio Jugular venous distension: no JVD Palpation: normal PMI Rate: regular rate Rhythm: regular rhythm Heart sounds: S1 normal heart sound present and S2 normal heart sound present GI Inspection: Yes normal to inspection Palpation (GI): No hepatosplenomegaly present Skin General skin exam: no rashes or lesions noted Extrem General: Yes no clubbing, cyanosis or edema Assessment and Plan Assessment & Plan (1) Hyperlipidemia: Code(s): E78.5 - Hyperlipidemia, unspecified Qualifiers: Hyperlipidemia type: unspecified Qualified Code(s): E78.5 - Hyperlipidemia, unspecified Plan: stable; same rx Medications: New lorazepam 1 mg PO DAILY PRN 30 tabs 0RF anxiety Coding Level of Care Code Est Pt Level 3 (80551) Diagnoses Hyperlipidemia, unspecified hyperlipidemia type E78.5 Hyperlipidemia type: unspecified
== END 2023-08-04 10:34 | disposition home or self-care (01) ==
PROVIDERS: PCP Internal Medicine; Visit Provider Internal Medicine
DX: E78.5 Hyperlipidemia, unspecified (principal)
CPT/HCPCS: 99213

== ENCOUNTER 2023-08-29 08:24 | Outpatient (AMB) | payer MEDICARE, SELFPAY ==
[2023-08-29 08:42] VITALS: BP 144/70; PULSE 65; O2SAT 98; BMI 25.8
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
== END 2023-08-29 08:58 | disposition home or self-care (01) ==
PROVIDERS: PCP Internal Medicine; Visit Provider Internal Medicine
DX: M25.552 Pain in left hip (principal)
CPT/HCPCS: 99213

== ENCOUNTER 2024-01-16 06:56 | Outpatient (REF) | payer MEDICARE, SELFPAY ==
[2024-01-16 07:10] LABS: MANUAL DIFF FLAG NO
[2024-01-16 07:39] LABS: Basophils Percent Auto 0.7 % (0-2); Eosinophils Absolute Auto 0.1 X10*3/uL (0.0-0.4); Eosinophils Percent Auto 1.8 % (0-4); Hematocrit 44.5 % (42.0-52.0); Hemoglobin 15.4 g/dl (14.0-18.0); Imm Gran Abs Auto 0.02 X10*3/uL (0.00-0.03); Imm Gran Pct Auto 0.4 % (0.0-0.4); Lymphocytes Absolute Auto 1.3 X10*3/uL (1.2-4.9); Lymphocytes Percent Auto 22.9 % (20-40); Mean Corpuscular HGB Conc 34.6 g/dl (31.0-36.0); Mean Corpuscular Hemoglobin 31.3 pg (27.0-33.0); Mean Corpuscular Volume 90.4 fL (80.0-98.0); Mean Platelet Volume 10.9 fL (9.4-12.4); Monocytes Absolute Auto 0.5 X10*3/uL (0.1-1.2); Monocytes Percent Auto 8.2 % (2-11); Neutrophils Absolute Auto 3.7 x10*3/uL (2.0-8.3); Platelet Count 189 X10*3/uL (160-400); Red Blood Count 4.92 X10*6/uL (4.60-5.80); Red Cell Distribution Width 12.4 % (11.0-16.0); White Blood Count 5.6 X10*3/uL (4.8-10.8)
[2024-01-16 08:50] LABS: Prostate Specific Antigen Scr 1.08 ng/mL (<0.05-4.0)
[2024-01-16 08:53] LABS: Alanine Aminotransferase 33 U/L (0-40); Albumin Level 4.6 g/dL (3.5-5.0); Alkaline Phosphatase 69 U/L (39-117); Anion Gap 14 (12-20); Aspartate Amino Transferase 32 U/L (5-37); Bilirubin Total 1.1 mg/dL (0.0-1.0); Blood Urea Nitrogen 19 mg/dL (9-16); Calcium 10.2 mg/dL (8.4-10.2); Carbon Dioxide 28 mmol/L (22-29); Chloride 103 mmol/L (96-108); Cholesterol 183 mg/dL (<200); Estimated Glomerular Filt Rate > 60; Glucose Fasting 112 mg/dL (60-99); HDL Cholesterol 64 mg/dL (>40); LDL Cholesterol Calculated 104 mg/dL (<100); Potassium 4.1 mmol/L (3.3-5.1); Sodium 141 mmol/L (135-145); Thyroid Stimulating Hormone 1.79 uIU/mL (0.32-4.0); Total Protein 7.9 g/dL (6.5-8.0); Triglycerides 79 mg/dL (<150)
== END 2024-01-16 06:57 | disposition home or self-care (01) ==
LOC: HO.LAB 06:56
PROVIDERS: PCP Internal Medicine; Visit Provider Internal Medicine
DX: Z00.00 Encounter for general adult medical examination without abnormal findings (principal); Z13.29 Encounter for screening for other suspected endocrine disorder; Z13.220 Encounter for screening for lipoid disorders; Z20.2 Contact with and (suspected) exposure to infections with a predominantly sexual mode of transmission; Z12.5 Encounter for screening for malignant neoplasm of prostate
CPT/HCPCS: 36415; 80053; 80061; 84153; 84443; 85025

== ENCOUNTER 2024-02-07 08:37 | Outpatient (AMB) | payer MEDICARE, SELFPAY ==
--- NOTE | 2024-02-07 08:42 | A.OFFPC_ITS ---
Vital Signs 02/07/24 08:43 Height 5 ft 7 in Weight 163 lb 4 oz BMI 25.6 BP 132/70 Blood Pressure Location Lt brachial Position Sitting Pulse 70 Pulse Source Pulse Oximeter Pulse Oximetry (%) 98 Oxygen Delivery Method Room Air Intake Visit Reasons: PE - see comments(ADDRESS PREVIOUS DM DIAG) Intake Note: Patient is here today for a physical. 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 Accompanied by: Spouse Allergies No Known Allergies Allergy (Verified 02/07/24 08:43) Medication List - Last Reconciled 02/07/24 by Renan Kingsley MD atorvastatin 20 mg PO DAILY donepezil 10 mg PO DAILY lorazepam 1 mg PO DAILY PRN omeprazole 20 mg PO DAILY Tobacco use date assessed: 02/07/24 Fall risk assessment: No Falls in past year Last assessed Fall Risk: 02/07/24 Dental Screening Dental Screen Date: 08/04/23 HPI PE - see comments(ADDRESS PREVIOUS DM DIAG) HPI Details hyperlipidemia and cognitive decline; some minor nocturia; stable PFSH Medical History Asbestosis Lyme disease Screening for prostate cancer Screening for colon cancer Screening for diabetes mellitus Hyperlipidemia Depression Surgical History History of colonoscopy History of umbilical hernia repair History of inguinal hernia repair H/O rectal polypectomy History of vasectomy Family History Father Dementia Mother Aneurysm Social History Housing: House Alcohol intake: current Alcohol intake frequency: 0-2 drinks per day Patient Tobacco Use Status: Former Tobacco user Tobacco use type: Cigarette Cigarette Packs Per Day: 1 Cigarettes Per Day: 20.0 Years Smoked: 25 e-Cigarette/Vaping Use: Never Used Second Hand Smoke Exposure: No service: No Current occupational status: retired Cognitive needs: No Hearing needs: No Vision needs: No Questionnaire Thrive Questionnaire Date Thrive assessed: 02/07/24 I am a: Patient What is your living situation today?: I have a steady place to live Within the past 12 months, did the food you bought not last and you didn't have the money to get more?: Never true Within the past 12 months, did you worry whether your food would run out before you got money to buy more?: Never true Do you have trouble paying for medicines?: No Do you have trouble getting transportation to medical appointments?: No Do you have trouble paying your heating and electricity bill?: No Do you have trouble taking care of your child, family member or friend?: No Do you have trouble with day-to-day activities such as bathing, preparing meals, shopping, managing finances, etc.?: No Are you currently unemployed and looking for a job?: No Are you interested in more education?: No Please select the resources that you would like help with: None Currently or been in a relationship where the following occur: No concerns reported THRIVE Score: 0 AUDIT C Alcohol Use Questionnaire (AUDIT-C) 1. How often do you have a drink containing alcohol?: Monthly or less 2. How many drinks containing alcohol do you have on a typical day when you are drinking?: 1 or 2 3. How often do you have six or more drinks on one occasion?: Monthly Total Score: 3 SOL-7 AMB Questionnaire SOL-7 Date SOL - 7 assessed: 08/04/23 Source: Developed by Drs. Isai Barros, Kristin Blanton, Saulo Shultz and colleagues, with an educational mine from [employer]. Physical exam (Primary Care) Vital Signs: Last Vital Signs Pulse 70 02/07/24 08:43 BP 132/70 02/07/24 08:43 Pulse Ox 98 02/07/24 08:43 Oxygen Delivery Method Room Air 02/07/24 08:43 BMI result Body Mass Index 25.6 Tobacco/Smoking Status: Tobacco use Status Tobacco use date assessed 02/07/24 02/07/24 08:48 Patient Tobacco Use Status Former Tobacco user 02/07/24 08:48 Tobacco use type Cigarette 02/07/24 08:48 e-Cigarette/Vaping Use Never Used 02/07/24 08:48 Thrive Assessment: Date of Thrive Assessment Date Thrive assessed 02/07/24 02/07/24 08:48 Currently or been in a relationship where the following occur: No concerns reported Coding Level of Care Code Est Pt Prev Care >65y(10651) Diagnoses Adult general medical exam Z00.00 Hyperlipidemia, unspecified hyperlipidemia type E78.5 Hyperlipidemia type: unspecified Cognitive decline R41.89 Assessment & Plan Assessment & Plan (1) Adult general medical exam: Code(s): Z00.00 - Encounter for general adult medical examination without abnormal findings Category: Medical Plan: stable; do labs (2) Hyperlipidemia: Code(s): E78.5 - Hyperlipidemia, unspecified Category: Medical Qualifiers: Hyperlipidemia type: unspecified Qualified Code(s): E78.5 - Hyperlipidemia, unspecified Plan: stable; same rx (3) Cognitive decline: Code(s): R41.89 - Other symptoms and signs involving cognitive functions and awareness Category: Medical Plan: stable ;same rx
[2024-02-07 08:43] VITALS: BP 132/70; PULSE 70; O2SAT 98; BMI 25.6
== END 2024-02-07 09:24 | disposition home or self-care (01) ==
PROVIDERS: PCP Internal Medicine; Visit Provider Internal Medicine
DX: Z00.00 Encounter for general adult medical examination without abnormal findings (principal); E78.5 Hyperlipidemia, unspecified; R41.89 Other symptoms and signs involving cognitive functions and awareness

== ENCOUNTER → 2024-02-07 08:37 | Outpatient (BNVA) | payer MEDICARE, SELFPAY | PROVIDERS: PCP Internal Medicine; Visit Provider Internal Medicine | DX: Z00.00 Encounter for general adult medical examination without abnormal findings (principal); R41.89 Other symptoms and signs involving cognitive functions and awareness; E78.5 Hyperlipidemia, unspecified | CPT/HCPCS: 99397 ==

== ENCOUNTER 2024-12-07 16:50 | Outpatient (AMB) | payer MEDICARE, SELFPAY ==
--- OUTSIDE RECORDS SUMMARY | 2024-12-07 16:51 | XMS_ITS | Clinical Summary ---
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 Role Phone Unavailable Primary Care Provider Unavailabl e Immunizations Immunization Administration Dates Next Due Td (adult), adsorbed 10/02/1998 Social History Tobacco Use Types Packs/Day Years Used Date Smoking Tobacco: Never Assessed Sex and Gender Information Value Date Recorded Sex Assigned at Not on file Legal Sex Male 6:31 AM EDT Gender Identity Not on file Sexual Orientation Not on file Plan of Treatment Health Maintenance Due Date Last Done Comments Hepatitis C Screening 1950 DTaP/Tdap/Td (1 - Tdap) 10/03/1998 10/02/1998 Pneumococcal 50+ years (1 of 1 - PCV) 01/26/2000 Zoster (Shingrix) (1 of 2) 01/26/2000 COVID-19 Vaccine ( - 2023-2 5 season) 2024 Influenza (#1) 2024 RSV (1 - 1-dose 75+ series) 2025 Abdominal Aorta Imaging Discontinued HPV Vaccine (No Doses Required) Completed Hep A Aged Out No longer eligi ble based on patient's age to complete this topic Hep B Aged Out No longer eligi ble based on patient's age to complete this topic Hib Aged Out No longer eligi ble based on patient's age to complete this topic Meningococcal ACWY Aged Out No longer eligible based on patient's age to complete this topic Zoster (Zostavax) Discontinued
--- OUTSIDE RECORDS SUMMARY | 2024-12-07 16:51 | XMS_ITS | Patient Health Record ---
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 Name Role Phone Renan Kingsley MD Primary Care Provider Isai Ponce Unavailable [phone] Allergies No Known Allergies Reason For Referral No Information Medications Medication SIG (Take, Route, Frequency, Duration) Notes Start Date End Date Status LORazepam 1 MG 1 Orally Once a day as needed Active CeleXA 20 MG 1 tablet Orally Once a day for 30 day(s) Active Omeprazole 20 MG TAKE ONE CAPSULE BY MOUTH EVERY DAY for 30 Active Atorvastatin Calcium 20 MG 1 tablet Orally Once a day for 30 day(s) Active Lovastatin 40 MG 1 tablet with a meal Orally Once a day Not-Taking Immunizations Vaccine Route Administration Date Status Comme nts Flu vaccine no Preserv 3 and > Unknown 12/30/2015 Admin istered Influenza Unknown 02/03/2021 Administered Problems Problem Type SNOMED Code ICD Code Onset Dates Problem Status W/U Status Risk Notes Problem Colon cancer screening (133457540) Colon cancer screening (Z12.11) Active confirmed Problem 322666199 Encounter for screening for malignant neoplasm of colon (Z12.11) Active confirmed Problem 632799969 History of adenomatous polyp of colon (Z86.010) Active confirmed Problem Screening for malignant neoplasm of rectum (269880671) Encounter for screening for malignant neoplasm of rectum (Z12.12) Active confirmed Problem Preprocedural examination (461331002780228) Preprocedural examination (Z01.818) Active confirmed Problem Esophageal stricture (02875890) Esophageal stricture (K22.2) Active confirmed Problem 44568069 Hiatal hernia (K44.9) Active confirmed Problem 74290606 Esophageal dysphagia (R13.14) Active confirmed Problem History of polyp of colon (425984581) History of colonic polyps (Z86.010) Active confirmed Plan Of Treatment Future Test Test Name Order Date UPPER GI WITH BALLOON DILATION OF ESOPHA JUWAN 12/11/2010 COLONOSCOPY 12/11/2010 UPPER GI ENDOSCOPY BALLOOON DILATION OF ESOPH 04/21/2016 COLONOSCOPY 04/21/2016 COLONOSCOPY 11/25/2021 Insurance Providers Payer Name Payer Address Payer Phone Subscriber Number Group Number Insured Name Patient Relationship to Insured Coverage Start Date Coverage End Date [employer] [employer] [address] [address] [place] [address] [phone] [id number] CHIDI MULLIGAN Self - patient is the insured Medical (General) History Medical History History ICD Code Screening colonoscopy in 200 6 with removal of a small tubular adenoma; colonoscopy in 01/2011 was negative other than some diverticulosis and internal hemorrhoids Hyperlipidemia Denies AL,DM,CVA,Lung disease,renal dise ase Asbestosis EGD in 01/2011--mild and non obstructing distal esophageal ring--this was dilated with an 18 mm balloon--- moderate-sized hiatal hernia, but no esophagitis or Santa's esophagus--he was treated with a course of omeprazole Lyme's disease 2020 EGD with balloon dialtion of a mild stricture 07/2016--used an 18-19-20mm balloon Colonoscopy 07/2016 with a hyperplastic p olyp Surgical History Surgery Date(Month/Year) Hernia surgery--bilateral inguinal and u mbilical hernia
--- NOTE | 2024-12-07 16:54 | A.OFFPC_ITS ---
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 Accompanied by: Self / Same As Patient Allergies No Known Allergies Allergy (Verified 12/07/24 17:05) Medication List - Last Reconciled 12/07/24 by Sharif Gamez MD atorvastatin 20 mg PO DAILY donepezil 10 mg PO DAILY lorazepam 1 mg PO DAILY PRN omeprazole 20 mg PO DAILY Tobacco use date assessed: 12/07/24 Fall risk assessment: No Falls in past year Last assessed Fall Risk: 12/07/24 Dental Screening Dental Screen Date: 12/07/24 Did you have a dental visit in the last 12 months?: Yes Did you have a dental problem in the last 6 months where you did not have access to dental care?: No Was dental information given to patient?: Patient has dentist HPI NEAL DR Kingsley HPI Details Patient comes in today for his follow up visit - he is transferring over from Dr. Kingsley, who retired from the practice a few months ago He is accompanied by his today, who states that patient has had some cognitive impairment over the past couple of years now and has been seeing Dr. Evans for neurology follow up regularly States that he has been experiencing recurrent visual hallucinations that started sometime back in September 2024 Describes his hallucinations as seeing imaginary people in his apartment on and off at all times of the day and states that these people are sometimes talking to him or talking about him He denies any headaches or dizziness Denies any chest pains, no increased shortness of breath No nausea/vomiting, no abdominal pain No change in bowel habits noted His last labs were done back in January 2024 with no recent follow-up labs done [facility] Medical History (Updated 12/09/24 @ 00:46 by Sharif Gamez MD) Anxiety Mild cognitive impairment GERD without esophagitis Impaired fasting glucose Pure hypercholesterolemia Asbestosis Lyme disease Screening for prostate cancer Screening for colon cancer Screening for diabetes mellitus Hyperlipidemia Depression Surgical History History of colonoscopy History of umbilical hernia repair History of inguinal hernia repair H/O rectal polypectomy History of vasectomy Family History Father Dementia Mother Aneurysm Social History Housing: House Alcohol intake: current Alcohol intake frequency: 0-2 drinks per day Patient Tobacco Use Status: Former Tobacco user Tobacco use type: Cigarette Cigarette Packs Per Day: 1 Cigarettes Per Day: 20.0 Years Smoked: 25 e-Cigarette/Vaping Use: Never Used Second Hand Smoke Exposure: No service: No Current occupational status: retired Cognitive needs: No Hearing needs: No Vision needs: No Questionnaire PHQ-9 Over the last 2 weeks, how often have you been bothered by any of the following problems? 1. Little interest or pleasure in doing things: not at all 2. Feeling down, depressed, or hopeless: not at all 3. Trouble falling or staying asleep, or sleeping too much: not at all 4. Feeling tired or having little energy: not at all 5. Poor appetite or overeating: not at all 6. Feeling bad about yourself - or that you are a failure or have let yourself or your family down: not at all 7. Trouble concentrating on things, such as reading the newspaper or watching television: not at all 8. Moving or speaking so slowly that other people could have noticed. Or the opp osite - being so fidgety or restless that you have been moving around a lot more than usual: not at all 9. Thoughts that you would be better off or of hurting yourself in some way: not at all Total score: 0 Depression Screening Interpretation: Negative Depression Screening Done: Yes 52142 - PHQ-9 Billing: Yes Source: Developed by Drs. Isai Barros, Kristin Blanton, Saulo Shultz and colleagues, with an educational mine from [employer]. Thrive Questionnaire Date Thrive assessed: 12/07/24 I am a: Patient What is your living situation today?: I have a steady place to live Within the past 12 months, did the food you bought not last and you didn't have the money to get more?: Never true Within the past 12 months, did you worry whether your food would run out before you got money to buy more?: Never true Do you have trouble paying for medicines?: No Do you have trouble getting transportation to medical appointments?: No Do you have trouble paying your heating and electricity bill?: No Do you have trouble taking care of your child, family member or friend?: No Do you have trouble with day-to-day activities such as bathing, preparing meals, shopping, managing finances, etc.?: Yes Are you currently unemployed and looking for a job?: No Are you interested in more education?: No Please select the resources that you would like help with: None Currently or been in a relationship where the following occur: No concerns reported THRIVE Score: 0 AUDIT C Alcohol Use Questionnaire (AUDIT-C) 1. How often do you have a drink containing alcohol?: Monthly or less 2. How many drinks containing alcohol do you have on a typical day when you are drinking?: 1 or 2 3. How often do you have six or more drinks on one occasion?: Never Total Score: 1 Score Reviewed/Action Taken: Yes SOL-7 AMB Questionnaire SOL-7 Date SOL - 7 assessed: 12/07/24 Feeling nervous, anxious, or on edge: 1 = Several days Not being able to stop or control worryin = Nearly every day Worrying too much about different things: 3 = Nearly every day Trouble relaxin = Nearly every day Being so restless that it is hard to sit still: 3 = Nearly every day Becoming easily annoyed or irritable: 2 = More than half the days Source: Developed by Drs. Isai Barros, Kristin Blanton, Saulo Shultz and colleagues, with an educational mine from [employer]. Review of Systems Const Denies chills, Denies fatigue, Denies fever(s) and Denies headache(s) ENT Denies dysphagia, Denies dizziness, Denies otalgia, Denies headache(s), Denies neck pain, Denies odynophagia and Denies sore throat Card Denies chest pain, Denies palpitations and Denies dyspnea Resp Denies chest congestion, Denies cough and Denies dyspnea GI Denies abdominal pain, Denies constipation, Denies dysphagia, Denies heartburn, Denies diarrhea, Denies nausea, Denies odynophagia and Denies vomiting Denies difficulty urinating, Denies dysuria, Denies nocturia and Denies urinary frequency Musc Denies back pain and Denies neck pain Skin/Breast Denies rash Neuro Details: (+) cognitive impairment, per spouse Denies behavioral changes, Denies dizziness, Denies headache(s) and Reports memory loss Psych Reports anxiety, Denies behavioral changes, Reports memory loss and Reports visual hallucinations (see HPI fpr details) Endo Denies fatigue and Denies palpitations Aller/Immun Denies seasonal rhinorrhea Physical exam (Primary Care) Vital Signs: Last Vital Signs Pulse 76 12/07/24 16:55 BP 136/84 12/07/24 16:55 Pulse Ox 97 12/07/24 16:55 Oxygen Delivery Method Room Air 12/07/24 16:55 BMI result Body Mass Index 24.7 Tobacco/Smoking Status: Tobacco use Status Tobacco use date assessed 12/07/24 12/07/24 16:55 Patient Tobacco Use Status Former Tobacco user 12/07/24 16:55 Tobacco use type Cigarette 12/07/24 16:55 e-Cigarette/Vaping Use Never Used 12/07/24 16:55 PHQ-9: PHQ-9 Score PHQ-9: Total score 0 12/07/24 17:16 Depression Screening Interpretation: Negative Thrive Assessment: Date of Thrive Assessment Date Thrive assessed 12/07/24 12/07/24 17:00 Currently or been in a relationship where the following occur: No concerns reported Const General: no acute distress and alert HENMT Ears: TM's normal bilaterally and EAC's normal Throat: Yes posterior oropharynx normal and Yes tonsils normal (no TP congestion) Neck Neck: Yes supple and No lymphadenopathy Thyroid: Thyroid normal Resp Auscultation: clear to auscultation bilaterally, no rales and no wheezes Cardio Rate: regular rate Rhythm: regular rhythm Heart sounds: no murmurs GI Palpation (GI): Soft to palpation and nontender Auscultation: normal bowel sounds General: Yes no CVA tenderness Back/Spine/Pelvis Back: no CVA tenderness Thoracic/Lumbar Spine: No lumbar spinal tenderness Skin Rashes: no rashes Neuro Sensory Exam: No Abnormal lower extremity sensory exam Extrem General: Yes no clubbing, cyanosis or edema Coding Level of Care Code Est Pt Level 4 (09829) Diagnoses Pure hypercholesterolemia E78.00 Impaired fasting glucose R73.01 GERD without esophagitis K21.9 Mild cognitive impairment G31.84 Visual hallucinations R44.1 Anxiety F41.9 Additional Codes PHQ-9 - 91178 - PHQ-9 Billing: Yes ([id number]) Assessment & Plan Assessment & Plan (1) Pure hypercholesterolemia: Code(s): E78.00 - Pure hypercholesterolemia, unspecified Category: Medical Plan: As patient has not had any follow up labs done in a while now, will send him for some follow up labs done [facility] Reinforced low cholesterol diet Continue Atorvastatin 20 mg QD Will have him recheck his labs and fasting lipids again in 6 months for follow up (2) Impaired fasting glucose: Code(s): R73.01 - Impaired fasting glucose Category: Medical Plan: His FBS was elevated at 112 mg/dl when his labs were last checked in January 2024 Reinforced low calorie/low carb diet Will recheck his FBS and if this remains elevated, will need to look into this further (3) GERD without esophagitis: Code(s): K21.9 - Gastro-esophageal reflux disease without esophagitis Category: Medical Plan: Dietary restrictions reinforced Continue Omeprazole 20 mg QD (4) Mild cognitive impairment: Code(s): G31.84 - Mild cognitive impairment of uncertain or unknown etiology Category: Medical Plan: His head CT done back in August 2022 came out normal with no acute findings Continue Donepezil 10 mg QD Follow up with neurology as scheduled (5) Visual hallucinations: Code(s): R44.1 - Visual hallucinations Category: Medical Plan: As patient will be seeing neurology for follow up next week, have advised patient to bring this up with neurology as he will likely need repeat brain imaging studies for further evaluation He currently does not have any symptoms of Parkinson's disease so Lewy Body dementia is a possibility here and visual hallucinations tend to occur in the later stages in Alzheimer's dementia and vascular dementia He also does not appear to be experiencing any symptoms of psychosis or behavioral changes lately so antipsychotics may not yet be indicated at this time but have advised patient and his spouse that I will leave it up to neurology to determine if any additional Rx are necessary at this time (6) Anxiety: Code(s): F41.9 - Anxiety disorder, unspecified Category: Medical Plan: Continue Lorazepam 1 mg QD PRN Plan Follow up in 6 months Orders: Orders Comprehensive Spencer. Panel Fast 12/07/24 E78.00 - Pure hypercholesterolemia, unspecified Lipid Panel 12/07/24 E78.00 - Pure hypercholesterolemia, unspecified Vitamin D 25-OH Total 6 Months E55.9 - Vitamin D deficiency, unspecified Complete Blood Count Auto Diff 12/07/24 D64.9 - Anemia, unspecified TSH reflex Free T4 12/07/24 E78.00 - Pure hypercholesterolemia, unspecified Vitamin B12 and Folate 12/07/24 E53.8 - Deficiency of other specified B group vitamins Vitamin D 25-OH Total 12/07/24 E55.9 - Vitamin D deficiency, unspecified Comprehensive Spencer. Panel Fast 6 Months E78.00 - Pure hypercholesterolemia, unspecified Lipid Panel 6 Months E78.00 - Pure hypercholesterolemia, unspecified Hemoglobin A1c 6 Months R73.01 - Impaired fasting glucose TSH reflex Free T4 6 Months E78.00 - Pure hypercholesterolemia, unspecified Vitamin B12 and Folate 6 Months E53.8 - Deficiency of other specified B group vitamins
[2024-12-07 16:55] VITALS: BP 136/84; PULSE 76; O2SAT 97; BMI 24.7
== END 2024-12-07 17:15 | disposition home or self-care (01) ==
LOC: HO.HMCH 16:50
PROVIDERS: PCP Internal Medicine; Visit Provider Internal Medicine
DX: E78.00 Pure hypercholesterolemia, unspecified (principal); R73.01 Impaired fasting glucose; K21.9 Gastro-esophageal reflux disease without esophagitis; G31.84 Mild cognitive impairment of uncertain or unknown etiology; R44.1 Visual hallucinations; F41.9 Anxiety disorder, unspecified

== ENCOUNTER → 2024-12-07 16:50 | Outpatient (BNVA) | payer MEDICARE, SELFPAY | PROVIDERS: PCP Internal Medicine; Visit Provider Internal Medicine | DX: K21.9 Gastro-esophageal reflux disease without esophagitis (principal); R44.1 Visual hallucinations; R73.01 Impaired fasting glucose; G31.84 Mild cognitive impairment of uncertain or unknown etiology; F41.9 Anxiety disorder, unspecified; E78.00 Pure hypercholesterolemia, unspecified; E55.9 Vitamin D deficiency, unspecified; D64.9 Anemia, unspecified; E53.8 Deficiency of other specified B group vitamins | CPT/HCPCS: 96127; 99212 ==

== ENCOUNTER 2024-12-10 07:41 | Outpatient (REF) | payer MEDICARE, SELFPAY ==
--- OUTSIDE RECORDS SUMMARY | 2024-12-10 07:44 | XMS_ITS | Clinical Summary ---
Author Organization [facility] Address [address] [place] [address] Care Team Providers Care Manager Social Name Role Phone Unavailable Primary Care Provider [...]
--- OUTSIDE RECORDS SUMMARY | 2024-12-10 07:44 | XMS_ITS | Patient Health Record ---
Author Organization [facility] Address [address] [place] [address] Care Team Providers Care Clinical Nurse Name Role Phone Renan Kingsley MD Primary Care Provider Isai Ponce Unavailable [phone] Allergies No Known Allergies Reason For Referral [...] Status Risk Notes Problem Colon cancer screening (050312908) Colon cancer screening (Z12.11) Active confirmed Problem [id number] Encounter for screening for malignant neoplasm of colon (Z12.11) Active confirmed Problem 697464966 History of adenomatous polyp of colon (Z86.010) Active confirmed Problem Screening for malignant neoplasm of rectum (009480030) Encounter for screening for malignant neoplasm of rectum (Z12.12) Active confirmed Problem Preprocedural examination (514077997883078) Preprocedural examination (Z01.818) Active confirmed Problem Esophageal stricture (97272276) Esophageal stricture (K22.2) Active confirmed Problem 74164037 Hiatal hernia (K44.9) Active confirmed Problem 23176279 Esophageal dysphagia (R13.14) Active confirmed Problem History of polyp of colon (655721380) History of colonic polyps (Z86.010) Active confirmed Plan Of Treatment Future Test Test Name Order Date UPPER GI WITH BALLOON DILATION OF ESOPHA JUWAN 12/11/2010 COLONOSCOPY 12/11/2010 UPPER GI ENDOSCOPY BALLOOON DILATION OF ESOPH 04/21/2016 COLONOSCOPY 04/21/2016 COLONOSCOPY 11/25/2021 Insurance Providers Payer Name Payer Address Payer Phone Subscriber Number Group Number Insured Name Patient Relationship to Insured Coverage Start Date Coverage End Date [facility] [address] [address] [place] [address] [id number] CHIDI MULLIGAN Self - patient is the insured Medical (General) History Medical History History ICD Code Screening colonoscopy in 200 6 with removal of a small tubular adenoma; colonoscopy in 01/2011 was negative other than some diverticulosis and internal hemorrhoids Hyperlipidemia Denies DC,DM,CVA,Lung disease,renal dise ase Asbestosis EGD in 01/2011--mild [...]
[2024-12-10 07:57] LABS: MANUAL DIFF FLAG NO
[2024-12-10 09:09] LABS: Hematocrit 45.2 % (42.0-52.0); Hemoglobin 15.2 g/dl (14.0-18.0); Imm Gran Abs Auto 0.05 X10*3/uL (0.00-0.03); Imm Gran Pct Auto 0.9 % (0.0-0.4); Lymphocytes Absolute Auto 1.3 X10*3/uL (1.2-4.9); Mean Corpuscular HGB Conc 33.6 g/dl (31.0-36.0); Mean Corpuscular Hemoglobin 30.7 pg (27.0-33.0); Mean Corpuscular Volume 91.3 fL (80.0-98.0); NRBC Abs Auto 0.000 X10*3/uL (0.0-0.012); NRBC Pct Auto 0.0 /100WBC (0.0-0.2); Platelet Count 206 X10*3/uL (160-400); Red Blood Count 4.95 X10*6/uL (4.60-5.80); White Blood Count 5.8 X10*3/uL (4.8-10.8)
[2024-12-10 09:48] LABS: Alanine Aminotransferase 20 U/L (0-40); Albumin Level 4.6 g/dL (3.5-5.0); Alkaline Phosphatase 57 U/L (39-117); Anion Gap 12 (12-20); Aspartate Amino Transferase 23 U/L (5-37); Blood Urea Nitrogen 16 mg/dL (9-16); Calcium 9.8 mg/dL (8.4-10.2); Carbon Dioxide 29 mmol/L (22-29); Chloride 105 mmol/L (96-108); Cholesterol 175 mg/dL (<200); Estimated Glomerular Filt Rate > 60; HDL Cholesterol 57 mg/dL (>40); Potassium 4.5 mmol/L (3.3-5.1); Sodium 141 mmol/L (135-145); Total Protein 7.1 g/dL (6.5-8.0); Triglycerides 82 mg/dL (<150)
[2024-12-10 10:07] LABS: Folate 6.1 ng/mL (> or = 4.0); Vitamin B12 191 pg/mL (200-900)
[2024-12-10 11:52] LABS: Appearance Urine Clear; Glucose Urine UA Negative (Negative); PH 6.5 (5.0-9.0); Specific Gravity - Urine 1.020 (1.005-1.025)
== END 2024-12-10 07:42 | disposition home or self-care (01) ==
LOC: HO.LAB 07:41
PROVIDERS: Absent Provider Registered Nurse; PCP Internal Medicine; Visit Provider Internal Medicine
DX: E53.8 Deficiency of other specified B group vitamins (principal); E55.9 Vitamin D deficiency, unspecified; E78.00 Pure hypercholesterolemia, unspecified; D64.9 Anemia, unspecified; R39.9 Unspecified symptoms and signs involving the genitourinary system
CPT/HCPCS: 36415; 80053; 80061; 81003; 82306; 82607; 82746; 84443; 85025

== ENCOUNTER 2024-12-11 10:59 | Outpatient (AMB) | payer MEDICARE, SELFPAY ==
--- NOTE | 2024-12-11 11:03 | A.OFFVIS_ITS ---
Intake Visit Reasons: 6m MCI Accompanied by: Spouse Allergies No Known Allergies Allergy (Verified 12/11/24 11:18) Medication List - Last Reconciled 12/11/24 by Anel Morgan CNP atorvastatin 20 mg PO DAILY lorazepam 1 mg PO DAILY PRN omeprazole 20 mg PO DAILY HPI Comments Details: His provided a note documenting changes she has noticed since 09/2024, including increased forgetfulness and confusion, and hallucinations. He feels memory has declined and is more forgetful. Visual hallucinations may happen few times a week and he recognizes that these are not real when they happen. She also notes that he sometimes thinks she is a hired caregiver and does not always recognize their house, and asks to go home. He continues to have trouble finding his way around the house. He is no longer driving. They are going for walks, but seems to tire more easily and feels he shuffles and slouches in the couch. Balance was okay, no falls. Mood was okay, but he could get upset if the dogs barked. Sleep was about the same. He was drinking alcohol 1-2x/week, which seemed to temporarily worsen confusion. He stopped donepezil as medication caused headaches. He tried sertraline, but stopped after about 2 weeks as medication made him feel slow. More confused in the evening. Starting in early 2024, he was having some trouble finding his way around the house and would ask where the bedroom or bathroom was. Taking donepezil without issue. Joppa sharp in the morning, seemed to fade as day went on. Forgetful and foggy at times. Sometimes would lose train of thought. Math was not as good. Sleep was not so good, waking during night to use bathroom. Stress at home was about the same. Could be anxious and frustrated at times. His son and two grandchildren, one with autism, were still living with him and his . Headaches were okay. He enjoyed playing guitar and doing crossword puzzles. Does some yardwork. He was noted to have trouble with his speech and language with word finding difficulties, which had become more noticeable around 2021. He also had some problems with numbers. On rare occas ions he gets momentarily disoriented when he is driving. 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 His father developed Alzheimer's disease in the 50s. [facility] Medical History (Updated 12/09/24 @ 00:46 by Sharif Gamez MD) Anxiety Mild cognitive impairment GERD without esophagitis Impaired fasting glucose Pure hypercholesterolemia Asbestosis Lyme disease Screening for prostate cancer Screening for colon cancer Screening for diabetes mellitus Hyperlipidemia Depression Surgical History History of colonoscopy History of umbilical hernia repair History of inguinal hernia repair H/O rectal polypectomy History of vasectomy Family History Father Dementia Mother Aneurysm Social History Housing: House Alcohol intake: current Alcohol intake frequency: 0-2 drinks per day Patient Tobacco Use Status: Former Tobacco user Tobacco use type: Cigarette Cigarette Packs Per Day: 1 Cigarettes Per Day: 20.0 Years Smoked: 25 e-Cigarette/Vaping Use: Never Used Second Hand Smoke Exposure: No service: No Current occupational status: retired Cognitive needs: No Hearing needs: No Vision needs: No Review of Systems Const Denies chills, Denies daytime sleepiness, Reports difficulty sleeping, Denies fatigue, Denies fever(s), Denies frequent falls, Denies headache(s), Denies increased appetite, Denies poor appetite, Denies snoring, Denies weakness, Denies weight gain and Denies weight loss Eyes Denies loss of vision ENT Denies vertigo, Denies dizziness, Denies headache(s) and Denies neck pain Card Denies chest pain at rest, Denies chest pain with activity, Denies syncope, Denies leg edema, Denies palpitations, Denies dyspnea and Denies dyspnea on exertion Resp Denies cough, Denies dyspnea, Denies dyspnea on exertion and Denies snoring GI Denies abdominal pain, Denies constipation, Denies heartburn, Denies diarrhea and Denies nausea Denies urinary frequency, Denies urinary incontinence and Denies urinary urgency Musc Denies abnormal gait, Denies back pain, Denies myalgias, Denies arthralgias, Denies neck pain, Denies numbness and Denies tingling Neuro Denies abnormal gait, Denies vertigo, Denies dizziness, Denies syncope, Denies frequent falls, Denies headache(s), Denies lack of coordination, Denies loss of vision, Reports memory loss, Denies numbness, Denies Other visual disturbances, Denies restless legs, Denies seizure-like activity, Denies tingling, Denies paresthesias, Denies tremor(s) and Denies weakness Psych Reports anxiety, Reports depression, Reports auditory hallucinations, Reports memory loss and Reports visual hallucinations Endo Denies fatigue and Denies palpitations Physical Exam Const Other: General Appearance:? normal, in no acute distress. Heart:? S1, S2 normal, no murmurs. Lungs:? clear anteriorly and posteriorly. Musculoskeletal:? normal. Extremities:? no edema. Psych:? alert, as below. Neuro Other: Abnormal Neurological Findings:?MMSE 25/30.?Mild jaw tremor. Somewhat reduced arm swing. Mental Status: alert, as below. Cranial Nerves: Pupils are equal, round, and reactive to light. External ocular muscles are intact. Visual le are full, no ptosis. Face is symmetrical, no facial weakness or droop. Facial sensations are normal. Tongue protrudes in midline. Palate elevates symmetrically. Shoulder shrugging is normal Motor Examination: Normal muscle tone, bulk and strength. No atrophy or fasciculations. No drift of the extended upper extremities. DTR 2+. Plantars are flexor. Sensory Exam: Normal light touch, temperature, pinprick, vibration, and joint- position sensations. Rhomberg sign is absent. Coordination: No ataxia. No titubation. Gait Exam: Ok, somewhat reduced arm swing. Cerebellar Signs: [id number] is okay. Extrapyramidal System: Mild jaw tremor. No rigidity with normal facial expressions. No bradykinesia. No bradyphrenia. Somewhat reduced arm swing. No propulsion or retropulsion. Speech: Normal. MMSE Level of Consciousness: Alert. Orientation: Knows correct year, month, day and season. Not date. Knows correct city, county and state. Knows correct location and floor. Registration: Able to register 3 objects. Attention: Serial 7's performed accurately to 93. Recall: Able to recall 3 out of 3 objects. Language: Normal spontaneous speech, fluency, repetition, naming, comprehension, reading, and writing. Total Score: 25/30. Results Reviewed Results Reviewed: Laboratory Tests 12/10/24 12/10/24 07:50 10:39 WBC 5.8 RBC 4.95 Hgb 15.2 Hct 45.2 MCV 91.3 MCH 30.7 MCHC 33.6 RDW 13.0 Plt Count 206 MPV 10.8 Immature Gran % (Auto) 0.9 H Neut % (Auto) 67.1 Lymph % (Auto) 21.7 Carver % (Auto) 7.3 Eos % (Auto) 2.3 Baso % (Auto) 0.7 Lymph # (Auto) 1.3 Carver # (Auto) 0.4 Eos # (Auto) 0.1 Baso # (Auto) 0.0 Abs Immat Gran (auto) 0.05 H Absolute Neuts (auto) 3.9 Absolute Nucleated RBC 0.000 Nucleated RBC % (auto) 0.0 Sodium 141 Potassium 4.5 Chloride 105 Carbon Dioxide 29 Anion Gap 12 BUN 16 Creatinine 1.04 Estimated GFR > 60 Fasting Glucose 108 H Calcium 9.8 Total Bilirubin 0.9 AST 23 ALT 20 Alkaline Phosphatase 57 Total Protein 7.1 Albumin 4.6 Triglycerides 82 Cholesterol 175 LDL Cholesterol, Calc 102 H HDL Cholesterol 57 Vitamin B12 191 L 25-OH Vitamin D Total 18.3 L Folate 6.1 TSH 1.31 Urine Color Yellow Urine Appearance Clear Urine pH 6.5 Ur Specific [place] 1.020 Urine Protein Negative Urine Glucose (UA) Negative Urine Ketones Negative Urine Blood Negative Urine Nitrite Negative Ur Leukocyte Esterase Negative -- 09/30/2022 EEG: WNL 09/17/2022 labs: WNL 08/26/2022 CT brain: No acute intracranial pathology Assessment & Plan Assessment & Plan (1) MCI (mild cognitive impairment): Code(s): G31.84 - Mild cognitive impairment of uncertain or unknown etiology Category: Medical Plan: Lab results reviewed, low vitamin D and slightly low vitamin B12 with normal folate. CBC, CMP, and TSH were okay. UA negative. He was no longer taking donepezil as he had more headaches with medication and medication was discontinued. He tried memantine and sertraline in the past with side effects. Hallucinations were not significantly bothersome at this time and no medication was needed at this time. Avoid/limit alcohol use. MRI brain ordered. Plan Meds tried: memantine (headaches/foggy), sertraline, donepezil (headaches/foggy) Orders: Orders MR head/brain wo con Today G31.84 - Mild cognitive impairment of uncertain or unknown etiology Coding Level of Care Code Est Pt Level 4 (30712) Diagnoses MCI (mild cognitive impairment) G31.84
--- OUTSIDE RECORDS SUMMARY | 2024-12-11 12:30 | XMS_ITS | Clinical Summary ---
Author Organization [facility] Address [address] [place] [address] Care Team Providers Care Community Organization Director Name Role Phone Unavailable Primary Care Provider [...]
--- OUTSIDE RECORDS SUMMARY | 2024-12-11 12:30 | XMS_ITS | Patient Health Record ---
Author Organization [facility] Address [address] [place] [address] Care Team Providers Care Mergers And Acquisitions Manager Name Role Phone Renan Kingsley MD Primary Care Provider Isai Ponce Unavailable [phone] Allergies No Known Allergies Reason For Referral [...] Status Risk Notes Problem Colon cancer screening (620222765) Colon cancer screening (Z12.11) Active confirmed Problem 338736734 Encounter for screening for malignant neoplasm of colon (Z12.11) Active confirmed Problem 156679644 History of adenomatous polyp of colon (Z86.010) Active confirmed Problem Screening for malignant neoplasm of rectum (759033592) Encounter for screening for malignant neoplasm of rectum (Z12.12) Active confirmed Problem Preprocedural examination (098111405642435) Preprocedural examination (Z01.818) Active confirmed Problem Esophageal stricture (17918667) Esophageal stricture (K22.2) Active confirmed Problem 00602570 Hiatal hernia (K44.9) Active confirmed Problem 10687137 Esophageal dysphagia (R13.14) Active confirmed Problem History of polyp of colon (942724705) History of colonic polyps (Z86.010) Active confirmed Plan Of Treatment Future Test Test Name Order Date UPPER GI WITH BALLOON DILATION OF ESOPHA JUWAN 12/11/2010 COLONOSCOPY 12/11/2010 UPPER GI ENDOSCOPY BALLOOON DILATION OF ESOPH 04/21/2016 COLONOSCOPY 04/21/2016 COLONOSCOPY 11/25/2021 Insurance Providers Payer Name Payer Address Payer Phone Subscriber Number Group Number Insured Name Patient Relationship to Insured Coverage Start Date Coverage End Date [facility] [address] [address] [place] [address] [id number] CHIDI MULLIGAN Self - patient is the insured Medical (General) History Medical History History ICD Code Screening colonoscopy in 200 6 with removal of a small tubular adenoma; colonoscopy in 01/2011 was negative other than some diverticulosis and internal hemorrhoids Hyperlipidemia Denies [place],DM,CVA,Lung disease,renal dise ase Asbestosis EGD in 01/2011--mild [...]
== END 2024-12-11 11:49 | disposition home or self-care (01) ==
LOC: HO.HSM 11:00
PROVIDERS: PCP Internal Medicine; Referring Provider Internal Medicine; Visit Provider Registered Nurse
DX: G31.84 Mild cognitive impairment of uncertain or unknown etiology (principal)
CPT/HCPCS: 99214

== ENCOUNTER → 2024-12-11 10:59 | Outpatient (BNVA) | payer MEDICARE, SELFPAY | PROVIDERS: PCP Internal Medicine; Referring Provider Internal Medicine; Visit Provider Registered Nurse | DX: G31.84 Mild cognitive impairment of uncertain or unknown etiology (principal) | CPT/HCPCS: 99212 ==

== ENCOUNTER 2025-01-14 10:16 | Outpatient (REF) | payer MEDICARE, SELFPAY ==
--- OUTSIDE RECORDS SUMMARY | 2025-01-11 05:30 | XMS_ITS ---
Author Organization [facility] Address [address] [place] [address] Care Team Providers Care Canal Equipment Mechanic Name Role Phone Franco ESPINOZA, Sharif Primary Care Provider Unava Aurelia Tello Unavailable [phone] Encounters Encounter Location Date [facility] [address] [place] [address] 01/11/2025 Aurelia Quarles Plan Of Treatment No Information Progress Notes * ISAAKJudsonDOB:1950 (74 yo M)Acc No.[id number]:01/11/2025 Progress Notes Patient: Judson MCCLAIN Provider: Dewayne [...] DPM Date: Generated for Jd loyd/Shonna/Janieitting on: 03/16/2024 12:22 PM EST
--- NOTE | ~2025-01-14 | XR_ITS ---
EXAMINATION: XR EYE FOREIGN BODY HISTORY: PRE MRI, COMPARISON: There are no prior studies available for comparison. FINDINGS: Three views of the orbits demonstrate no radiopaque foreign body. The visualized paranasal sinuses are clear. XR/XR Orbits For Foreign Body IMPRESSION: No radiopaque foreign body is identified. Electronically signed by: Isai Aldrich MD 01/14/2025 11:05 AM [facility]
--- OUTSIDE RECORDS SUMMARY | 2025-01-14 12:22 | XMS_ITS | Clinical Summary ---
Author Organization [facility] Address [address] [place] [address] Care Team Providers Care Melter Clerk Name Role Phone Unavailable Primary Care Provider [...] of 2) 01/26/2000 COVID-19 Vaccine ( - 2024-2 6 season) 2024 Influenza (#1) 2024 RSV (1 [...]
--- OUTSIDE RECORDS SUMMARY | 2025-01-14 12:22 | XMS_ITS | Patient Health Record ---
Author Organization [facility] Address [address] [place] [address] Care Team Providers Care Audit Control Clerk Name Role Phone Franco ESPINOZA, Sharif Primary Care Provider Unava ilAurelia Wall Unavailable [phone] Reason For Referral No Information Encounters Encounter Location Date Provider Diagnosis [facility] [address] [place] [address] 11/26/2024 Aurelia Quarles [address] [address] 11/30/2024 Aurelia Quarles Plan Of Treatment No Information Insurance Providers Payer Name Payer Address Payer Phone Subscriber Number Group Number Insured Name Patient Relationship to Insured Coverage Start Date Coverage End Date [employer] Medicare Adv-[id number] [address] [address] [place] [address] [id number] Judson Dolan Self - patient is the insured
--- OUTSIDE RECORDS SUMMARY | 2025-01-14 12:22 | XMS_ITS | Patient Health Record ---
Author Organization [facility] [place] [facility] Address [address] [place] [address] Care Team Providers Care Bill Cutter Name Role Phone Renan Kingsley MD Primary Care Provider Isai Ponce Unavailable [phone] Allergies No Known Allergies Reason For Referral No Information Medications Medication SIG (Take, Route, Frequency, Duration) Notes Start Date End Date Status LORazepam 1 MG 1 Orally Once a day as needed Active CeleXA 20 MG 1 tablet Orally Once a day; Duration: 30 day(s) Active Omeprazole 20 MG TAKE ONE CAPSULE BY MOUTH EVERY DAY; Duration: 30 Active Atorvastatin Calcium 20 MG 1 tablet Orally Once a day; Duration: 30 day(s) Active Lovastatin 40 MG 1 tablet with a meal Orally Once a day Not-Taking Immunizations Vaccine Route Administration Date Status Comme nts Flu vaccine no Preserv 3 and > Unknown 12/30/2015 Admin istered Influenza Unknown 02/03/2021 Administered Problems Problem Type SNOMED Code ICD Code Onset Dates Problem Status W/U Status Risk Notes Problem Colon cancer screening (183914939) Colon cancer screening (Z12.11) Active confirmed Problem Screening for malignant neoplasm of colon (465444855) Encounter for screening for malignant neoplasm of colon (Z12.11) Active confirmed Problem History of adenomatous polyp of colon (820290715) History of adenomatous polyp of colon (Z86.010) Active confirmed Problem Screening for malignant neoplasm of rectum (452867091) Encounter for screening for malignant neoplasm of rectum (Z12.12) Active confirmed Problem Preprocedural examination (412013359681569) Preprocedural examination (Z01.818) Active confirmed Problem Esophageal stricture (27883526) Esophageal stricture (K22.2) Active confirmed Problem Hiatal hernia (27272477) Hiatal hernia (K44.9) Active confirmed Problem Esophageal dysphagia (39317203) Esophageal dysphagia (R13.14) Active confirmed Problem History of polyp of colon (situation) (060737339) History of colonic polyps (Z86.010) Active confirmed Plan Of Treatment Future Test Test Name Order Date UPPER GI WITH BALLOON DILATION OF ESOPHA JUWAN 12/11/2010 COLONOSCOPY 12/11/2010 UPPER GI ENDOSCOPY BALLOOON DILATION OF ESOPH 04/21/2016 COLONOSCOPY 04/21/2016 COLONOSCOPY 11/25/2021 Insurance Providers Payer Name Payer Address Payer Phone Subscriber Number Group Number Insured Name Patient Relationship to Insured Coverage Start Date Coverage End Date [facility] [address] [address] [place] [address] [id number] CHIDI MULLIGAN Self - patient is the insured Medical (General) History Medical History History ICD Code Screening colonoscopy in 200 6 with removal of a small tubular adenoma; colonoscopy in 01/2011 was negative other than some diverticulosis and internal hemorrhoids Hyperlipidemia Denies [place],DM,CVA,Lung disease,renal dise ase Asbestosis EGD in 01/2011--mild [...]
== END 2025-01-14 10:17 | disposition home or self-care (01) ==
LOC: HO.XRAY 10:16
PROVIDERS: PCP Internal Medicine; Referring Provider Registered Nurse; Visit Provider Radiology Diagnostic Radiology
DX: Z01.818 Encounter for other preprocedural examination (principal)
CPT/HCPCS: 70030

== ENCOUNTER → 2025-01-14 10:21 | Outpatient (BNV) | payer MEDICARE, SELFPAY | PROVIDERS: PCP Internal Medicine; Referring Provider Registered Nurse; Visit Provider Radiology Diagnostic Radiology | DX: Z01.818 Encounter for other preprocedural examination (principal); Z18.10 Retained metal fragments, unspecified | CPT/HCPCS: 70030 ==

== ENCOUNTER → 2025-01-15 07:42 | Outpatient (BNV) | payer MEDICARE, SELFPAY | PROVIDERS: PCP Internal Medicine; Visit Provider Radiology Diagnostic Radiology | DX: G31.84 Mild cognitive impairment of uncertain or unknown etiology (principal) | CPT/HCPCS: 70551 ==

== ENCOUNTER 2025-01-15 08:04 | Outpatient (REF) | payer MEDICARE, SELFPAY ==
--- OUTSIDE RECORDS SUMMARY | 2025-01-11 05:30 | XMS_ITS ---
Author Organization [facility] Address [address] [place] [address] Care Team Providers Care Bag Machine Operator Helper Name Role Phone Franco ESPINOZA, Sharif Primary Care Provider Unava Aurelia Tello Unavailable [phone] Encounters Encounter Location Date [facility] [address] [place] [address] 01/11/2025 Aurelia Quarles Plan Of Treatment No Information Progress Notes * ISAAKJudsonDOB:1950 (74 yo M)Acc No.[id number]:01/11/2025 Progress Notes Patient: Judson MCCLAIN Provider: Dewayne [...] Provider: Dewayne Quarles DPM Date: Generated for Jd loyd/Shonna/Janieitting on: 03/17/2024 08:14 AM EST
--- NOTE | ~2025-01-15 | MR_ITS ---
EXAMINATION: MR BRAIN WITHOUT CONTRAST CLINICAL INFORMATION: G 31.84. Mild cognitive impairment of uncertain or unknown etiology. COMPARISON: None available. TECHNIQUE: MRI of the brain was obtained using routine sequences without contrast. FINDINGS: No restricted diffusion. No acute intracranial hemorrhage, mass effect, midline shift, hydrocephalus or herniation. Dubon-white matter differentiation is normal. Extra-axial CSF prominence and cerebral sulci prominence involving mostly the bifrontal bitemporal lobes. No signal abnormality or volume loss in the hippocampi. Posterior cranial fossa contents demonstrated no signal abnormality or mass effect. Craniocervical junction is intact with normal position of the cerebellar tonsils. Sellar/suprasellar region is normal. Flow-void signal within the main cerebral vessels is normal. Intraocular lens surgery, right eyeball. MR/MR head/brain wo con IMPRESSION: Bifrontal, bitemporal lobe atrophy, mild to moderate. No acute brain abnormality. Electronically signed by: Amor Kerns MD 01/15/2025 08:56 AM [facility]
--- OUTSIDE RECORDS SUMMARY | 2025-01-15 08:13 | XMS_ITS | Clinical Summary ---
Author Organization [facility] Address [address] [place] [address] Care Team Providers Care Paediatric Thoracic Physician Name Role Phone Unavailable Primary Care Provider [...]
--- OUTSIDE RECORDS SUMMARY | 2025-01-15 08:14 | XMS_ITS | Patient Health Record ---
Author Organization [facility] Address [address] [place] [address] Care Team Providers Care Refractory Grinder Operator Name Role Phone Renan Kingsley MD Primary Care Provider Isai Ponce Unavailable [phone] Allergies No Known Allergies Reason For Referral [...] Status Risk Notes Problem Colon cancer screening (034251183) Colon cancer screening (Z12.11) Active confirmed Problem Screening for malignant neoplasm of colon (945527681) Encounter for screening for malignant neoplasm of colon (Z12.11) Active confirmed Problem History of adenomatous polyp of colon (076835173) History of adenomatous polyp of colon (Z86.010) Active confirmed Problem Screening for malignant neoplasm of rectum (969110471) Encounter for screening for malignant neoplasm of rectum (Z12.12) Active confirmed Problem Preprocedural examination (775965005338472) Preprocedural examination (Z01.818) Active confirmed Problem Esophageal stricture (42704628) Esophageal stricture (K22.2) Active confirmed Problem Hiatal hernia (18287386) Hiatal hernia (K44.9) Active confirmed Problem Esophageal dysphagia (26064206) Esophageal dysphagia (R13.14) Active confirmed Problem History of polyp of colon (situation) (606221391) History of colonic polyps (Z86.010) Active confirmed Plan Of Treatment Future Test Test Name Order Date UPPER GI WITH BALLOON DILATION OF ESOPHA JUWAN 12/11/2010 COLONOSCOPY 12/11/2010 UPPER GI ENDOSCOPY BALLOOON DILATION OF ESOPH 04/21/2016 COLONOSCOPY 04/21/2016 COLONOSCOPY 11/25/2021 Insurance Providers Payer Name Payer Address Payer Phone Subscriber Number Group Number Insured Name Patient Relationship to Insured Coverage Start Date Coverage End Date [facility] [address] [address] [place] [address] [id number] CHIDI MULLIGAN Self - patient is the insured Medical (General) History Medical History History ICD Code Screening colonoscopy in 200 6 with removal of a small tubular adenoma; colonoscopy in 01/2011 was negative other than some diverticulosis and internal hemorrhoids Hyperlipidemia Denies [place],DM,CVA,Lung disease,renal dise ase Asbestosis EGD in 01/2011--mild [...]
--- OUTSIDE RECORDS SUMMARY | 2025-01-15 08:14 | XMS_ITS | Patient Health Record ---
Author Organization [facility] Address [address] [place] [address] Care Team Providers Care Rn Peritoneal Dialysis Name Role Phone Frnaco ESPINOZA, Sharif Primary Care Provider Unava ilAurelia Wall Unavailable [phone] Reason For Referral No Information Encounters Encounter Location Date Provider Diagnosis [facility] [address] [place] [address] 11/26/2024 Aurelia Quarles [address] [address] 11/30/2024 Aurelia Quarles Plan Of Treatment No Information Insurance Providers Payer Name Payer Address Payer Phone Subscriber Number Group Number Insured Name Patient Relationship to Insured Coverage Start Date Coverage End Date [employer] Medicare Adv-[id number] [address] [address] [place] [address] [id number] Judson Dolan Self - patient is the insured
--- OUTSIDE RECORDS SUMMARY | 2025-01-15 08:14 | XMS_ITS ---
Author Organization Unknown ENCOUNTERS Encounter Performer Location Date Diagnosis Diagnosis Status Pre Admit [address] [id number] [place] [phone] JOSE *Note: Encounters from your own facility or health system may be excluded. Allergies, Adverse Reactions, Alerts Allergen Type Severity Identification Date Medications Name Date Quantity Days Supplied GPI Number
== END 2025-01-15 08:05 | disposition home or self-care (01) ==
LOC: HO.MRI 08:04
PROVIDERS: PCP Internal Medicine; Visit Provider Registered Nurse
DX: G31.84 Mild cognitive impairment of uncertain or unknown etiology (principal)
CPT/HCPCS: 70551

== ENCOUNTER 2025-03-02 19:30 | Emergency (ER) | payer MEDICARE, SELFPAY ==
--- OUTSIDE RECORDS SUMMARY | 2025-01-11 05:30 | XMS_ITS ---
Author Organization [facility] Address [address] [place] [address] Care Team Providers Care Php Lamp Developer Name Role Phone Franco ESPINOZA, Sharif Primary Care Provider Unava Aurelia Tello Unavailable [phone] Encounters Encounter Location Date [facility] [address] [place] [address] 01/11/2025 Aurelia Quarles Plan Of Treatment No Information Progress Notes * ISAAKAugustuschungDOB:1950 (75 yo M)Acc No.[id number]:01/11/2025 Progress Notes Patient: Judson MCCLAIN Provider: Dewayne [...] DPM Date: Generated for Jd loyd/Shonna/Janieitting on: 05/03/2024 09:28 PM EST
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
[2025-03-02 19:59] VITALS: BP 146/73; PULSE 83; RESP 16; TEMP 36.7; O2SAT 97; BMI 27.4
--- NOTE | 2025-03-02 20:10 | MHC.EDTECH ---
This fountain pen nibs inspector called patient from waiting room at 2007 to obtain blood work that was ordered. No answer. Registration stated patient was taken back to the main.
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
[2025-03-02 20:30] VITALS: BP 135/72; PULSE 82; RESP 14; TEMP 36.9; O2SAT 99
[2025-03-02 20:35] LABS: MANUAL DIFF FLAG NO
[2025-03-02 20:36] LABS: Hematocrit 41.5 % (42.0-52.0); Hemoglobin 14.4 g/dl (14.0-18.0); Imm Gran Abs Auto 0.02 X10*3/uL (0.00-0.03); Imm Gran Pct Auto 0.3 % (0.0-0.4); Lymphocytes Absolute Auto 0.9 X10*3/uL (1.2-4.9); Mean Corpuscular HGB Conc 34.7 g/dl (31.0-36.0); Mean Corpuscular Hemoglobin 31.0 pg (27.0-33.0); Mean Corpuscular Volume 89.4 fL (80.0-98.0); NRBC Abs Auto 0.000 X10*3/uL (0.0-0.012); NRBC Pct Auto 0.0 /100WBC (0.0-0.2); Platelet Count 193 X10*3/uL (160-400); Red Blood Count 4.64 X10*6/uL (4.60-5.80); White Blood Count 7.6 X10*3/uL (4.8-10.8)
[2025-03-02 20:53] LABS: Alanine Aminotransferase 24 U/L (0-40); Albumin Level 4.8 g/dL (3.5-5.0); Alkaline Phosphatase 63 U/L (39-117); Anion Gap 13 (12-20); Aspartate Amino Transferase 25 U/L (5-37); Blood Urea Nitrogen 23 mg/dL (9-16); Calcium 9.6 mg/dL (8.4-10.2); Carbon Dioxide 25 mmol/L (22-29); Chloride 107 mmol/L (96-108); Creatinine Clr Calc Pharmacy 65.1; Estimated Glomerular Filt Rate > 60; Potassium 3.8 mmol/L (3.3-5.1); Sodium 141 mmol/L (135-145); Total Protein 7.3 g/dL (6.5-8.0)
--- OUTSIDE RECORDS SUMMARY | 2025-03-02 21:28 | XMS_ITS | Patient Health Record ---
Author Organization [facility] Address [address] [place] [address] Care Team Providers Care Vulnerability Researcher Name Role Phone Franco ESPINOZA, Sharif Primary Care Provider Unava ilAurelia Wall Unavailable [phone] Reason For Referral No Information Encounters Encounter Location Date Provider Diagnosis [facility] [address] [place] [address] 11/26/2024 Aurelia Quarles [address] [address] 11/30/2024 Aurelia Quarles Plan Of Treatment No Information Insurance Providers Payer Name Payer Address Payer Phone Subscriber Number Group Number Insured Name Patient Relationship to Insured Coverage Start Date Coverage End Date [employer] Medicare [id number] [address] [address] [place] [address] [id number] Judson Dolan Self - patient is the insured
--- OUTSIDE RECORDS SUMMARY | 2025-03-02 21:28 | XMS_ITS | Clinical Summary ---
Author Organization [facility] Address [address] [place] [address] Care Team Providers Care Road Cutter Name Role Phone Unavailable Primary Care Provider [...]
--- OUTSIDE RECORDS SUMMARY | 2025-03-02 21:29 | XMS_ITS ---
Author Organization Unknown ENCOUNTERS Encounter Performer Location Date Diagnosis Diagnosis Status Pre Admit [address] [address] [id number] [place] [address] [id number] JOSE *Note: Encounters from your own facility or health system may be excluded. Allergies, Adverse Reactions, Alerts Allergen Type Severity Identification Date Medications Name Date Quantity Days Supplied GPI Number
--- OUTSIDE RECORDS SUMMARY | 2025-03-02 21:29 | XMS_ITS | Patient Health Record ---
Author Organization [facility] Address [address] [place] [address] Care Team Providers Care Longwall Foreman Name Role Phone Renan Kingsley MD Primary Care Provider Isai Ponce Unavailable [phone] Allergies No Known Allergies Reason For Referral No Information Medications Medication SIG (Take, Route, Frequency, Duration) Notes Start Date End Date Status LORazepam 1 MG Tablet 1 Orally Once a da y as needed Active CeleXA 20 MG Tablet 1 tablet Orally Once a day; Duration: 30 day(s) Active Omeprazole 20 MG Capsule Delayed Release TAKE ONE CAPSULE BY MOUTH EVERY DAY; Duration: 30 Active Atorvastatin Calcium 20 MG Tablet 1 tablet Orally Once a day; Duration: 30 day(s) Active Lovastatin 40 MG Tablet 1 tablet with a meal Orally Once a day Not-Taking/PRN Immunizations Vaccine Route Administration Date Status Comme nts Flu vaccine no Preserv 3 and > Unknown 12/30/2015 Admin istered Influenza Unknown 02/03/2021 Administered Social History Social History Additional Details Category Social Info Options Details Miscellaneous: Marital status: 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 Section Notes: Nonsmoker; no sig alcohol Nonsmoker; no sig alcohol Problems Problem Type SNOMED Code ICD Code Onset Dates Problem Status W/U Status Risk Notes Problem Colon cancer screening (192804163) Colon cancer screening (Z12.11) Active confirmed Problem Screening for malignant neoplasm of colon (327560530) Encounter for screening for malignant neoplasm of colon (Z12.11) Active confirmed Problem History of adenomatous polyp of colon (222856519) History of adenomatous polyp of colon (Z86.010) Active confirmed Problem Screening for malignant neoplasm of rectum (946767935) Encounter for screening for malignant neoplasm of rectum (Z12.12) Active confirmed Problem Preprocedural examination (071182099460754) Preprocedural examination (Z01.818) Active confirmed Problem Esophageal stricture (36635958) Esophageal stricture (K22.2) Active confirmed Problem Hiatal hernia (00050982) Hiatal hernia (K44.9) Active confirmed Problem Esophageal dysphagia (77427175) Esophageal dysphagia (R13.14) Active confirmed Problem History of polyp of colon (situation) (746216199) History of colonic polyps (Z86.010) Active confirmed Plan Of Treatment Future Test Test Name Order Date UPPER GI WITH BALLOON DILATION OF ESOPHA JUWAN 12/11/2010 COLONOSCOPY 12/11/2010 UPPER GI ENDOSCOPY BALLOOON DILATION OF ESOPH 04/21/2016 COLONOSCOPY 04/21/2016 COLONOSCOPY 11/25/2021 Insurance Providers Payer Name Payer Address Payer Phone Subscriber Number Group Number Insured Name Patient Relationship to Insured Coverage Start Date Coverage End Date [facility] [address] [address] [place] [address] [id number] CHIDI MULLIGAN Self - patient is the [...]
[2025-03-02 22:21] LABS: Appearance Urine Clear; Glucose Urine UA Negative (Negative); PH 6.0 (5.0-9.0); Specific Gravity - Urine 1.015 (1.005-1.025)
[2025-03-02 22:44] LABS: Cannabinoid Screen Urine Not Detected (Not Detect)
--- NOTE | 2025-03-02 22:53 | PC.NURSE ---
according to MD, pt and pt were discussed in meeting with marv, family refused consult and stated they would like to go home. pt ambulatory at this time
[2025-03-02 22:56] VITALS: BP 123/78; PULSE 77; RESP 15; TEMP 36.7; O2SAT 98
[2025-03-02 22:59] LABS: Thyroid Stimulating Hormone 1.37 uIU/mL (0.32-4.0)
== END 2025-03-02 22:57 | disposition home or self-care (01) ==
PROVIDERS: Nurse Practitioner Family; Emergency Provider Emergency Medicine Emergency Medical Services
DX: G30.9 Alzheimer's disease, unspecified (principal); F02.811 Dementia in other diseases classified elsewhere, unspecified severity, with agitation; E78.5 Hyperlipidemia, unspecified; K21.9 Gastro-esophageal reflux disease without esophagitis; Z79.899 Other long term (current) drug therapy; Z87.891 Personal history of nicotine dependence
CPT/HCPCS: 36415; 80048; 80076; 80307; 81003; 84443; 85025; 99284

== ENCOUNTER 2025-03-08 09:13 | Outpatient (AMB) | payer MEDICARE, SELFPAY ==
--- OUTSIDE RECORDS SUMMARY | 2025-01-11 05:30 | XMS_ITS ---
Author Organization [facility] Address [address] [place] [address] Care Team Providers Care Shredded Filler Cutter Operator Name Role Phone Franco ESPINOZA, Sharif Primary Care Provider Unava Aurelia Tello Unavailable [phone] Encounters Encounter Location Date [facility] [address] [place] [phone] 01/11/2025 Aurelia Quarles Plan Of Treatment No Information Progress Notes * ISAAKAugustuschungDOB:1950 (75 yo M)Acc No.[id number]:01/11/2025 Progress Notes Patient: Judson MCCLAIN Provider: Dewayne Quarles DPM :1950 A ge:74 Y S ex:Male Date:01/11/2025 Address:[address], [place]-[address] Pcp:Sharif Gamez MD Subjective: * Chief Complaints: * * Medical History: Objective: * Vitals: Assessment: Plan: * Treatment: * Images: * The named appointment provid er may or may not be the originator of this progress note, and it is not deemed complete until electronically signed by the appointment provider. Sign off status: Pending * Provider: Dewayne Quarles DPM Date: Generated for dJ loyd/Shonna/Janieitting on: 05/09/2024 09:17 AM EST
--- OUTSIDE RECORDS SUMMARY | 2025-03-08 09:17 | XMS_ITS | Patient Health Record ---
Author Organization [facility] Address [address] [place] [address] Care Team Providers Care Pbx Supervisor Name Role Phone Franco ESPINOZA, Sharif Primary Care Provider Unava ilAurelia Wall Unavailable [phone] Reason For Referral No Information Encounters Encounter Location Date Provider Diagnosis [facility] [address] [place] [address] 11/26/2024 Aurelia Quarles [address] [address] 11/30/2024 Aurelia Quarles Plan Of Treatment No Information Insurance Providers Payer Name Payer Address Payer Phone Subscriber Number Group Number Insured Name Patient Relationship to Insured Coverage Start Date Coverage End Date [employer] Medicare [id number] [address] [address] [place] [address] [id number] Judson Dolan Self - patient is the insured
--- OUTSIDE RECORDS SUMMARY | 2025-03-08 09:17 | XMS_ITS | Clinical Summary ---
Author Organization [facility] Address [address] [place] [address] Care Team Providers Care Diamond Die Maker Name Role Phone Unavailable Primary Care [...]
--- OUTSIDE RECORDS SUMMARY | 2025-03-08 09:17 | XMS_ITS | Patient Health Record ---
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 Section Notes: Nonsmoker; no sig alcohol Nonsmoker; no sig alcohol Problems Problem Type SNOMED Code ICD Code Onset Dates Problem Status W/U Status Risk Notes Problem Colon cancer screening (923451966) Colon cancer screening (Z12.11) Active confirmed Problem Screening for malignant neoplasm of colon (170166166) Encounter for screening for malignant neoplasm of colon (Z12.11) Active confirmed Problem History of adenomatous polyp of colon (288995589) History of adenomatous polyp of colon (Z86.010) Active confirmed Problem Screening for malignant neoplasm of rectum (995630628) Encounter for screening for malignant neoplasm of rectum (Z12.12) Active confirmed Problem Preprocedural examination (486399475070584) Preprocedural examination (Z01.818) Active confirmed Problem Esophageal stricture (04675683) Esophageal stricture (K22.2) Active confirmed Problem Hiatal hernia (47566057) Hiatal hernia (K44.9) Active confirmed Problem Esophageal dysphagia (82712277) Esophageal dysphagia (R13.14) Active confirmed Problem History of polyp of colon (situation) (020328400) History of colonic polyps (Z86.010) Active confirmed Plan Of Treatment Future Test Test Name Order Date UPPER GI WITH BALLOON DILATION OF ESOPHA JUWAN 12/11/2010 COLONOSCOPY 12/11/2010 UPPER GI ENDOSCOPY BALLOOON DILATION OF ESOPH 04/21/2016 COLONOSCOPY 04/21/2016 COLONOSCOPY 11/25/2021 Insurance Providers Payer Name Payer Address Payer Phone Subscriber Number Group Number Insured Name Patient Relationship to Insured Coverage Start Date Coverage End Date [facility] [address] [address] [place] [address] [id number] CHIDI MULLIGAN Self - patient is the [...]
--- NOTE | 2025-03-08 09:23 | A.OFFPC_ITS ---
Vital Signs 03/08/25 09:25 03/08/25 09:26 Height 5 ft 7 in 5 ft 7 in Weight 149 lb 6 oz BMI 23.4 BP 122/72 Blood Pressure Location Lt brachial Lt brachial Position Sitting Sitting Respiration 18 Pulse 73 Pulse Source Pulse Oximeter Pulse Oximeter Temp Source Temporal Artery Scan Temporal Artery Scan Pulse Oximetry (%) 98 Oxygen Delivery Method Room Air Room Air Intake Visit Reasons: frequent urination at night Intake Note: Patient is here to follow up on Frequent urination at night. Roll Cutter Required: No Wholesale Account Executive: Not Required per policy Accompanied by: Self / Same As Patient Allergies No Known Allergies Allergy (Verified 03/08/25 09:37) Medication List - Last Reconciled 03/08/25 by MISBAH Ocasio atorvastatin 20 mg PO DAILY omeprazole 20 mg PO DAILY PRN quetiapine 25 mg orally 1 tablet at bedtime x1 week, then 1 tablet twice a day; 30 days Tobacco use date assessed: 03/08/25 Fall risk assessment: No Falls in past year Last assessed Fall Risk: 03/08/25 Dental Screening Dental Screen Date: 03/08/25 Did you have a dental visit in the last 12 months?: Yes Did you have a dental problem in the last 6 months where you did not have access to dental care?: No Was dental information given to patient?: Patient has dentist HPI HPI Comments History of Present Illness Details The patient is a 75 year old male presenting with frequent urination. He has a history of cognitive impairment and has experienced an increase in nocturia, from 1-2 times per night to 4-8 times per night, leading to exhaustion for both himself and his caregiver. He reports a sensation of urinary urgency but denies any burning upon urination. The patient has had several emergency room visits, including one last week, where a urinary tract infection was ruled out. His daytime urinary frequency is normal at about 3-4 times per day. Regarding his gastrointestinal health, he maintains regular daily bowel movements with the use of a daily supplement. His weight has decreased from 156 pounds to 149 pounds; a prior recording of 175 pounds is noted to be an error. Health Maintenance The patient has a scheduled follow-up appointment with Dr. Gamez on June 07, which he should keep. He is scheduled to return in May for a physical. The caregiver was advised to call if any issues arise before the next scheduled appointments. Social History - Functional Status: The patient has a c aregiver who acts as his spokesperson and assists him with activities such as going to the bathroom at night due to his cognitive impairment. Results - Urinalysis: [facility]. COUNTS INCLUDE 234 BEDS AT THE [facility] Medical History Anxiety Mild cognitive impairment GERD without esophagitis Impaired fasting glucose Pure hypercholesterolemia Asbestosis Lyme disease Screening for prostate cancer Screening for colon cancer Screening for diabetes mellitus Hyperlipidemia Depression Surgical History History of colonoscopy History of umbilical hernia repair History of inguinal hernia repair H/O rectal polypectomy History of vasectomy Family History Father Dementia Mother Aneurysm Social History Housing: House Alcohol intake: never Patient Tobacco Use Status: Former Tobacco user Tobacco use type: Cigarette Cigarette Packs Per Day: 1 Cigarettes Per Day: 20.0 Years Smoked: 25 e-Cigarette/Vaping Use: Never Used Second Hand Smoke Exposure: Yes service: No Current occupational status: retired Cognitive needs: No Hearing needs: No Vision needs: No Questionnaire PHQ-9 Over the last 2 weeks, how often have you been bothered by any of the following problems? 1. Little interest or pleasure in doing things: several days 2. Feeling down, depressed, or hopeless: several days 3. Trouble falling or staying asleep, or sleeping too much: more than half the days 4. Feeling tired or having little energy: not at all 5. Poor appetite or overeating: not at all 6. Feeling bad about yourself - or that you are a failure or have let yourself or your family down: not at all 7. Trouble concentrating on things, such as reading the newspaper or watching television: not at all 8. Moving or speaking so slowly that other people could have noticed. Or the opposite - being so fidgety or restless that you have been moving around a lot more than usual: not at all 9. Thoughts that you would be better off or of hurting yourself in some way: not at all Total score: 4 Depression Screening Interpretation: Positive Depression Screening Done: Yes Source: Developed by Drs. Isai Barros, Saulo Sullivan and colleagues, with an educational mine from [employer]. Thrive Questionnaire Date Thrive assessed: 03/08/25 I am a: Patient What is your living situation today?: I have a steady place to live Within the past 12 months, did the food you bought not last and you didn't have the money to get more?: Never true Within the past 12 months, did you worry whether your food would run out before you got money to buy more?: Never true Do you have trouble paying for medicines?: No Do you have trouble getting transportation to medical appointments?: No Do you have trouble paying your heating and electricity bill?: No Do you have trouble taking care of your child, family member or friend?: No Do you have trouble with day-to-day activities such as bathing, preparing meals, shopping, managing finances, etc.?: Yes Are you currently unemployed and looking for a job?: No Are you interested in more education?: No Please select the resources that you would like help with: None Currently or been in a relationship where the following occur: No concerns rep orted THRIVE Score: 0 SOL-7 AMB Questionnaire SOL-7 Date SOL - 7 assessed: 12/07/24 Feeling afraid as if something awful might happen: 2 = More than half the days Source: Developed by Drs. Isai Barros, Saulo Sullivan and colleagues, with an educational mine from [employer]. Review of Systems Narrative Review of Systems - Genitourinary: Reports nocturia occurring 4-8 times per night and urinary urgency. - He denies dysuria. - Daytime urinary frequency is reported as normal. - Gastrointestinal: Reports regular daily bowel movements with supplement use. - Constitutional: Reports exhaustion due to sleep disruption from nocturia. - Reports weight loss. - Neurological: History of cognitive impairment is noted. Const Denies body aches, Denies chills, Denies fever(s), Denies headache(s) and Denies poor appetite Eyes Reports no additional complaints ENT Denies dysphagia, Denies dizziness, Denies headache(s) and Denies odynophagia Card Denies chest pain, Denies syncope, Denies edema, Denies irregular heart rhythm, Denies lightheadedness and Denies dyspnea Resp Denies cough and Denies dyspnea GI Denies abdominal pain, Denies constipation, Denies dysphagia, Denies heartburn, Denies diarrhea and Denies odynophagia Denies difficulty urinating, Denies dysuria, Reports nocturia and Denies penile discharge Musc Denies abnormal gait, Denies back pain and Denies myalgias Skin/Breast Reports system reviewed and no additional complaints, except as documented Neuro Denies abnormal gait, Denies dizziness, Denies syncope and Denies headache(s) Psych Reports no additional complaints Physical exam (Primary Care) Vital Signs: Last Vital Signs Pulse 73 03/08/25 09:26 Resp 18 03/08/25 09:26 BP 122/72 03/08/25 09:26 Pulse Ox 98 03/08/25 09:26 Oxygen Delivery Method Room Air 03/08/25 09:26 BMI result Body Mass Index 23.4 Tobacco/Smoking Status: Tobacco use Status Tobacco use date assessed 03/08/25 03/08/25 09:25 Patient Tobacco Use Status Former Tobacco user 03/08/25 09:25 Tobacco use type Cigarette 03/08/25 09:25 e-Cigarette/Vaping Use Never Used 03/08/25 09:25 PHQ-9: PHQ-9 Score PHQ-9: Total score 4 03/08/25 09:25 Depression Screening Interpretation: Positive Thrive Assessment: Date of Thrive Assessment Date Thrive assessed 03/08/25 03/08/25 09:32 Currently or been in a relationship where the following occur: No concerns reported Narrative Physical Exam - Weight: 149 lbs. - Lungs: Clear to auscultation bilaterally. Const General: cooperative, healthy appearing, comfortable and no acute distress Orientation/consciousness: patient oriented x3 HENMT Head: Yes normocephalic Ears: hearing grossly normal bilaterally General nose exam: Normal external nose present Eyes General: appearance normal, both eyes and all related structures Conjunctivae: conjunctivae normal Neck Neck: Yes full ROM and Yes no lymphadenopathy Resp Effort & Inspection: normal respiratory effort Auscultation: clear to auscultation bilaterally, no crackles, no rales, no r honchi and no wheezes Cardio Rate: regular rate Rhythm: regular rhythm GI Palpation (GI): Soft to palpation, nontender and No hepatosplenomegaly present Auscultation: normal bowel sounds General: Yes no CVA tenderness Back/Spine/Pelvis Back: no CVA tenderness Skin General skin exam: no rashes or lesions noted Neuro General: patient oriented x3 Gait exam (Neuro): Normal gait present Extrem General: Yes normal to inspection, Yes full ROM and No edema Psych Affect: normal affect Attitude: cooperative Insight: Good insight present (Psych) Judgement: Good judgement present (Psych) Coding Level of Care Code Est Pt Level 3 (37979) Diagnoses Nocturia more than twice per night R35.1 Time Spent (min) 25 Assessment & Plan Assessment & Plan (1) Nocturia more than twice per night: Code(s): R35.1 - Nocturia Category: Medical Plan Plan Patient was informed and verbally consented to the use of an ambient scribe for clinic note documentation during this visit. 1. Nocturia And Urinary Urgency The patient's primary complaint is nocturia, increasing from 1-2 to 4-8 times per night, accompanied by urgency. Urinary tract infection has been ruled out based on recent emergency room evaluations. Given the symptoms and the patient's age, benign prostatic hyperplasia (BPH) is suspected. The plan is to start Flomax at night to decrease urinary urgency. Additionally, a PSA level will be checked via bloodwork to further evaluate for prostate enlargement. Discussion Notes I discussed the patient's symptoms of frequent nighttime urination and urgency with him and his caregiver. I explained that while constipation can contribute to these symptoms, his are well-managed. I recommended starting Flomax to help reduce the urinary symptoms, and advised taking it in the evening. I also informed them that I am ordering a PSA blood test to check for swelling of the prostate, which could be the underlying cause. We confirmed the plan for him to follow up with Dr. Carvajal in May and with our office for a physical at that time, and they know to call if anything is needed sooner. Patient Instructions - Take one Flomax capsule by mouth each evening, around 8:00 or 9:00 PM, to help with frequent urination at night. - Go to a lab to have your blood drawn for a PSA test. - Continue with your plan to see Dr. Carvajal on June 07. - You do not need to come back to this office until May for your physical exam. - If you need anything before your next appointment, please call the office. Orders: Orders PSA,Total (Free>4and<10) Today R35.1 - Nocturia Medications: New tamsulosin 0.4 mg PO BEDTIME 90 caps 3RF
[2025-03-08 09:26] VITALS: BP 122/72; PULSE 73; RESP 18; O2SAT 98; BMI 23.4
== END 2025-03-08 09:45 | disposition home or self-care (01) ==
LOC: HO.HMCH 09:14
PROVIDERS: PCP Internal Medicine
DX: R35.1 Nocturia (principal)

== ENCOUNTER 2025-03-08 09:13 | Outpatient (REF) | payer MEDICARE, SELFPAY ==
--- OUTSIDE RECORDS SUMMARY | 2025-03-08 11:53 | XMS_ITS ---
Author Organization Unknown ENCOUNTERS Encounter Performer Location Date Diagnosis Diagnosis Status Pre Admit [address] [address] [id number] [place] [address] [id number] JOSE *Note: Encounters from your own facility or health system may be excluded. Allergies, Adverse Reactions, Alerts Allergen Type Severity Identification Date Medications Name Date Quantity Days Supplied GPI Number
[2025-03-08 13:22] LABS: PSA,Total (Free>4and<10) 1.21 ng/mL (0.00-4.00)
== END 2025-03-08 09:14 | disposition home or self-care (01) ==
LOC: HO.LAB 09:13
PROVIDERS: PCP Internal Medicine
DX: R35.1 Nocturia (principal); G31.09 Other frontotemporal neurocognitive disorder; F02.80 Dementia in other diseases classified elsewhere, unspecified severity, without behavioral disturbance, psychotic disturbance, mood disturbance, and anxiety; G47.52 REM sleep behavior disorder; R35.0 Frequency of micturition; R39.15 Urgency of urination; Z12.5 Encounter for screening for malignant neoplasm of prostate
CPT/HCPCS: 36415; 84153; 96127; 99212